=== PATIENT | female | born 1960 | race African-American/Black ===

== ENCOUNTER 2017-05-12 16:24 | Outpatient (CLI) | payer MEDICARE, OTHER ==
--- NOTE | 2017-05-12 22:47 | MRI ---
MRI CERVICAL SPINE WITHOUT CONTRAST 05/12/17 COMPARISON: None. HISTORY: Left sided neck pain and shoulder pain for two months. TECHNIQUE: Multiplanar and multisequence MRI images are obtained of the cervical spine without contrast. FINDINGS: Generalized disc desiccation is seen. The vertebral bodies and intervertebral discs demonstrate norm al height and alignment without fracture or subluxation. The visualized cord demonstrates normal sig nal throughout. The craniocervical junction is unremarkable. The prevertebral and paraspinal soft ti ssues are unremarkable. C2-3: Unremarkable. C3-4: A small disc osteophyte complex is seen. No posterior facet arthrosis. Mild central canal sten osis. Mild bilateral neural foraminal stenosis. C4-5: A small disc osteophyte complex is seen. Mild left posterior facet arthrosis. No right posteri or facet arthrosis. Mild central canal stenosis. Moderate left and mild right neural foraminal steno sis. C5-6: A small disc osteophyte complex is seen. No posterior facet arthrosis. Mild central canal sten osis. Mild bilateral neural foraminal stenosis. C6-7: A small disc osteophyte complex is seen. No posterior facet arthrosis. Mild to moderate centra l canal stenosis. Moderate left and mild right neural foraminal stenosis. C7-T1: Unremarkable. IMPRESSION: Degenerative changes of the cervical spine as above. POS: [facility]
== END 2017-05-12 16:25 | disposition home or self-care (01) ==
LOC: MRI 16:24
PROVIDERS: ATTEND Orthopaedic Surgery
DX: M47.22 Other spondylosis with radiculopathy, cervical region (principal)
CPT/HCPCS: 72141

== ENCOUNTER 2017-06-08 21:29 | Emergency (ER) | payer MEDICARE ==
[2017-06-08] MEDS ORDERED: Lidocaine Viscous Sol 2% 15 ml UD Cup ONE (22:12)
[2017-06-08] MEDS ORDERED: Mag-Al 1200 mg/1200 mg/30 ML UDCUP ONE (22:12)
[2017-06-08 22:17] LABS: #Basophils 0.1 thou/uL (0.0-0.2); #Eosinphils 0.2 thou/uL (0.0-0.7); #Lymphocytes 2.1 thou/uL (1.20-3.40); #Monocytes 0.7 thou/uL (0.11-0.59); #Neutrophils 4.2 thou/uL (1.40-6.50); %Basophils 1.3 % (0.0-1.0); %Eosinophils 2.5 % (0.0-10.0); %Lymphocytes 28.6 % (21.0-51.0); %Monocytes 9.8 % (0.0-10.0); Hematocrit 39.1 % (36.0-47.0); Mean Platelet Volume 6.7 fL (7.4-10.4); Red Blood Cell (RBC) Count 4.23 mill/uL (4.20-5.40); White Blood Cell (WBC) Count 7.3 thou/uL (4.8-10.8)
--- NOTE | 2017-06-08 22:27 | RAD ---
AP VIEW CHEST: 06/08/17 HISTORY: Epigastric pain. AP view chest is obtained. Comparison made to previous exam from 05/03/17. AP view chest demonstrates sternotomy wires seen. The lungs are well aerated. No evidence of active intrathoracic disease seen. No evidence of effusions, pneumonia or pneumothorax seen. Surgical stapl es seen in the left axillary region. IMPRESSION: Unremarkable AP view chest with no evidence of acute intrathoracic abnormality seen. POS: [facility]
[2017-06-08 22:39] LABS: ALT (SGPT) 13 U/L (8-55); AST (SGOT) 16 U/L (5-34); Alkaline Phosphatase 110 U/L (40-150); Anion Gap 16 mmol/L (10-20); BUN (Urea Nitrogen) 18 mg/dL (9.8-20.1); Bilirubin, Total 0.7 mg/dL (0.2-1.2); CK (CPK) 129 U/L (29-168); Calc. Creatinine Clearance 0 mL/min (70-130); Calcium 10.1 mg/dL (7.8-10.44); Carbon Dioxide 21 mmol/L (22-29); Chloride 106 mmol/L (98-107); Estimated GFR-MDRD 64; Globulin 4.1 g/dL (2.4-3.5); Lipase 42 U/L (8-78); Protein, Total 8.5 g/dL (6.0-8.3)
[2017-06-08 22:41] LABS: Troponin I Less than 0.010 ng/mL (< 0.028)
== END 2017-06-08 22:56 | disposition home or self-care (01) ==
LOC: ERS 21:29
DX: R10.13 Epigastric pain (principal); R07.9 Chest pain, unspecified
CPT/HCPCS: 71010; 80053; 82550; 82553; 83690; 84484; 85025; 93005; 94760

== ENCOUNTER 2017-11-08 16:58 | Inpatient (IN) | payer MEDICARE, OTHER ==
[2017-11-08] MEDS ORDERED: Ondansetron HCl/PF 4 MG/2 ML Vial ONE (17:22)
[2017-11-08 17:43] LABS: ALT (SGPT) 8 U/L (8-55); AST (SGOT) 16 U/L (5-34); Albumin 4.3 g/dL (3.5-5.0); Alkaline Phosphatase 93 U/L (40-150); Anion Gap 16 mmol/L (10-20); BUN (Urea Nitrogen) 14 mg/dL (9.8-20.1); Bilirubin, Total 1.3 mg/dL (0.2-1.2); CK (CPK) 77 U/L (29-168); Calc. Creatinine Clearance 0 mL/min (70-130); Calcium 9.4 mg/dL (7.8-10.44); Carbon Dioxide 23 mmol/L (22-29); Chloride 104 mmol/L (98-107); Estimated GFR-MDRD 54; Glucose 104 mg/dL (70-105); Lipase 26 U/L (8-78); Potassium 4.2 mmol/L (3.5-5.1); Protein, Total 7.3 g/dL (6.0-8.3); Sodium 139 mmol/L (136-145)
[2017-11-08 17:46] LABS: CKMB 0.5 ng/mL (0-6.6); Troponin I Less than 0.010 ng/mL (< 0.028)
--- NOTE | 2017-11-08 17:51 | RAD ---
SINGLE VIEW OF THE CHEST: COMPARISON: 06/08/2017 HISTORY: Nausea, vomiting, and fatigue for 2 days. FINDINGS: Single view of the chest shows a normal size cardiomediastinal silhouette. The patient is status pos t sternotomy. There is no evidence of consolidation, mass, or pleural effusion. IMPRESSION: No evidence of acute cardiopulmonary disease. POS: [facility]
[2017-11-08 18:01] LABS: Band 2 % (5-11); Elliptocytes SLIGHT = 2-5 cells (100X) (0-1/hpf); Hemoglobin 8.9 g/dL (12.0-16.0); Hypochromia SLIGHT = 6-15 cells (100X) (0-5/hpf); Lymphocytes 18 % (21-51); MDiff Complete? YES; Mean Corpuscular HGB CONC 34.8 g/dL (32.0-36.0); Mean Corpuscular Hemoglobin 32.6 pg (27.0-31.0); Mean Corpuscular Volume 93.7 fl (81.0-99.0); Metamyelocyte 1 % (0-0); Microcytosis SLIGHT = 6-15 cells (100X) (0-5/hpf); Monocytes 50 % (0-10); Myelocyte 2 % (0-0); Neutrophil 11 % (42-75); Ovalocytes SLIGHT = 2-5 cells (100X) (0-1/hpf); PLT Morphology Comment Appears Decreased; Platelet Count 13 thou/uL (130-400); Polychromasia SLIGHT = 2-3 cells (100X) (0-2/hpf); RBC Distribution Width 15.2 % (11.5-14.5); Red Blood Cell (RBC) Count 2.72 mill/uL (4.20-5.40); Reflex for Review?? YES; White Blood Cell (WBC) Count 11.9 thou/uL (4.8-10.8)
[2017-11-08 18:23] LABS: Bilirubin Negative (Negative); Blood, Urine Moderate (Negative); Glucose, Urine (Dipstick) Negative (Negative); Leukocyte Trace (Negative); Nitrite Negative (Negative); Protein, Urine (Dipstick) Negative (Neg-Trace)
[2017-11-08 18:24] LABS: Clarity Hazy (Clear)
[2017-11-08 18:30] LABS: Bacteria/HPF 1+ HPF (None Seen); WBC/HPF 0-3 HPF (0-3)
[2017-11-08] MEDS ORDERED: Ondansetron HCl/PF 4 MG/2 ML Vial IVP PRN (20:13)
[2017-11-08] MEDS ORDERED: Ondansetron ODT 4 MG TAB SL PRN (20:13)
[2017-11-08] MEDS ORDERED: Sodium Chloride 0.9% 1,000 ML IV SCH ×2 (20:13→22:00)
[2017-11-08 21:53] VITALS: BMI 33.9
[2017-11-08] MEDS ORDERED: Furosemide 80 MG TAB PO PRN (21:54)
[2017-11-08] MEDS ORDERED: Nitroglycerin 0.4 MG TAB (25 Tab Bottle) SL PRN (21:54)
[2017-11-08] MEDS: Morphine 5 MG/ML SYRINGE SLOW IVP PRN (23:17)
[2017-11-08] MEDS: Cyclobenzaprine 10 MG TAB PO PRN (23:17)
--- NOTE | 2017-11-08 23:26 | HP ---
DATE OF ADMISSION: 11/08/2017 CHIEF COMPLAINT: Diarrhea. HISTORY OF PRESENT ILLNESS: This is a 57-year-old -[place] female with a known history of br east cancer on chemotherapy and radiation closely followed by Dr. Snell. The last radiation she w as 1 year ago in 12/2016. Since then she follows up with Dr. Snell every 6 months. The patient w as feeling very weak for the past few days associated severe diarrhea, nausea, and vomiting. She den ied taking any antibiotic. She denied eating any food outside to cause stomach upset. She denied wang ving any fevers, no chills and/or rigors. No frequent urination. No abdominal pain. She complains of chronic back pain and she points toward the spine or thoracic spine. The patient has known history of coronary artery disease with history of CABG done a year ago and she sees Dr. Mitchell. PAST MEDICAL HISTORY: 1. History of coronary artery disease. 2. History of breast cancer. 3. History of hypertension. PAST SURGICAL HISTORY: 1. History of hysterectomy. 2. History of cholecystectomy. 3. History of coronary artery bypass grafting. SOCIAL HISTORY: The patient is a nonsmoker. Quit smoking many years ago. No history of alcohol, no history of illicit drug use. She lives independently. REVIEW OF SYSTEMS: All 12 systems reviewed with the patient thoroughly. The following complete revi ew of systems was negative, unless otherwise mentioned in the HPI or below: Constitutional: Weight loss or gain, sense of well-being, ability to conduct usual activities, exerc ise tolerance. Skin/Breast: Rash, itching, changes in hair growth or loss, nail changes, breast lum ps, tenderness, swelling, nipple discharge. Eyes: Vision, double vision, tearing, blind spots, pain . ENT/Mouth: Headaches (location, time of onset, duration, precipitating factors), vertigo, lighthe adedness, injury. Vision, double vision, tearing, blind spots, pain, nose bleeding, colds, obstructio n, discharge, dental difficulties, gingival bleeding, dentures, neck stiffness, pain, tenderness, mas ses in thyroid or other areas. Cardiovascular: Precordial pain, substernal distress, palpitations, syncope, dyspnea on exertion, orthopnea, nocturnal paroxysmal dyspnea, edema, cyanosis, hypertension, heart murmurs, varicosities, phlebitis, claudication. Respiratory: Pain, shortness of breath, whee zing, stridor, cough, hemoptysis, fever or night sweats. Gastrointestinal: Poor appetite, dysphagia , indigestion, abdominal pain, heartburn, eructation, nausea, vomiting, hematemesis, jaundice, consti pation, or diarrhea, abnormal stools (denny-colored, tarry, bloody, greasy, foul smelling), flatulence , hemorrhoids, recent changes in bowel habits. Genitourinary: Urgency, frequency, dysuria, nocturia , hematuria, polyuria, oliguria, unusual (or change in) color of urine, stones, hesitancy, change in size of stream, dribbling, acute retention or incontinence, libido, potency. Musculoskeletal: Pain, swelling, redness or heat of muscles or joints, limitation, of motion, muscular weakness, atrophy, c ramps. Neurologic/Psychiatric: Convulsions, paralyses, tremor, incoordination, paresthesias, difficulties w ith memory of speech, sensory or motor disturbances, or muscular coordination (ataxia, tremor), emoti onal problems, anxiety, depression, previous psychiatric care, unusual perceptions, hallucinations. Allergy/Immunologic: Skin rash, anemia, bleeding tendency, polydipsia, polyuria, intolerance to heat or cold. ALLERGIES: No known drug allergies. FAMILY HISTORY: No significant family history of coronary artery disease, this has been reviewed tho roughly and not contributing to present complaint. HOME MEDICATIONS: Aspirin 81 mg daily, anastrozole 1 mg p.o. daily, calcium, cyclobenzaprine 5 mg p. o. t.i.d., fluticasone 2 sprays, Lasix 80 mg p.o. b.i.d., hydralazine 10 mg p.o. b.i.d., isosorbide 3 0 mg p.o. daily, magnesium, nebivolol 10 mg p.o. daily, nitroglycerin, potassium, and spironolactone 25 mg p.o. daily. PHYSICAL EXAMINATION: VITAL SIGNS: Blood pressures are 121/75, heart rate is 87, respiration rate is 18, and saturation 91 %. GENERAL: The patient is seen lying in the bed supine, does not appear to be in acute distress at thi s time. She is alert and oriented x3. HEENT: Atraumatic, normocephalic. PERRLA. Extraocular movements were intact. Oral mucosa pink and moist. CARDIOVASCULAR: S1, S2 normal. No murmurs, rubs or gallops. LUNGS: Bilateral air entry was equal. No wheezing, no crackles. ABDOMEN: Soft, nontender, no guarding, no rebound tenderness. Bowel sounds normal. MUSCULOSKELETAL: No calf tenderness. No pedal edema. No joint tenderness, no joint swelling. SKIN: No cyanosis, no erythema, no rash, no pallor. NEUROLOGIC: Cranial examination II-XII intact. No focal deficits were noted. PSYCHIATRIC: No suicidal ideation, no signs of karen. LABORATORY DATA: WBC 11.9, hemoglobin is 8.9, hematocrit is 25.4, platelets are 13. UA showed trace leukocyte esterase positive, but normal wbc's. Sodium 139, potassium 4.2, chloride is 104, BUN 14, and creatinine 1.24. ASSESSMENT: 1. Severe thrombocytopenia. 2. Severe intractable nausea and vomiting. 3. Severe diarrhea. 4. Dehydration. 5. History of breast cancer. 6. History of coronary artery disease with coronary artery bypass graft. 7. History of hypertension. PLAN: 1. Plan is to start the patient on platelet transfusion. We will do 2 units of platelet transfusion , today the platelets are 13. Her usual platelets are more than 200 according to her. We will consu lt Dr. Snell in the morning. 2. The patient has severe dehydration. We will start the patient on IV fluids at 100 mL an hour. W e will give only one bag of fluids and stop and we will restart the patient on Lasix. She is to avoi d any excessive of volume overload. 3. The patient has severe intractable nausea and vomiting. We will do Zofran for nausea. We will c losely monitor. 4. The patient has severe diarrhea. We will do a Clostridium difficile toxin assay and stool cultur es to look for any evidence of infectious diarrhea. 5. History of coronary artery disease. We will hold off the aspirin at this time because of the hig h risk of bleeding with thrombocytopenia. 6. We will continue the patient on the beta blockers and hydralazine for blood pressures. 7. Deep venous thrombosis prophylaxis. Sequential compression devices. I spent 70 minutes with this patient.
[2017-11-09] MEDS: Acetaminophen 325 MG TAB PO PRN ×2 (05:27→14:32)
[2017-11-09] MEDS: Famotidine/PF 20 mg/2ml Vial SLOW IVP SCH ×2 (08:58→19:50)
[2017-11-09] MEDS: Calcium Carbonate + Vit D 1 TAB PO SCH (08:59)
[2017-11-09] MEDS: Magnesium Oxide 250 MG TAB PO SCH ×2 (09:00→19:51)
[2017-11-09] MEDS: Potassium Chloride 10 MEQ TAB PO SCH (09:00)
[2017-11-09] MEDS: Nebivolol HCl 5 MG TAB PO SCH (09:00)
[2017-11-09] MEDS ORDERED: Spironolactone 25 MG TAB PO SCH (09:00)
[2017-11-09] MEDS: Docusate 100 MG CAP PO SCH ×2 (09:00→19:51)
[2017-11-09 09:28] LABS: ALT (SGPT) 10 U/L (8-55); AST (SGOT) 17 U/L (5-34); Albumin 3.9 g/dL (3.5-5.0); Alkaline Phosphatase 83 U/L (40-150); Anion Gap 13 mmol/L (10-20); BUN (Urea Nitrogen) 12 mg/dL (9.8-20.1); Bilirubin, Total 2.6 mg/dL (0.2-1.2); Calc. Creatinine Clearance 76 mL/min (70-130); Calcium 8.9 mg/dL (7.8-10.44); Carbon Dioxide 23 mmol/L (22-29); Chloride 105 mmol/L (98-107); Estimated GFR-MDRD 57; Globulin 2.7 g/dL (2.4-3.5); Glucose 119 mg/dL (70-105); LDH 561 U/L (125-220); Potassium 3.9 mmol/L (3.5-5.1); Protein, Total 6.6 g/dL (6.0-8.3); Sodium 137 mmol/L (136-145); Uric Acid 8.3 mg/dL (2.6-6.0)
[2017-11-09] MEDS: Morphine 5 MG/ML SYRINGE SLOW IVP PRN ×2 (09:29→14:32)
[2017-11-09] MEDS: hydrALAZINE 10 MG TAB PO SCH ×2 (09:35→19:51)
[2017-11-09] MEDS: Anastrozole 1 MG TAB PO SCH (09:35)
[2017-11-09] MEDS: Fluticasone Propionate Nasal Spray 16 gm Bottle NASAL SCH (09:36)
[2017-11-09 09:38] LABS: Anisocytosis SLIGHT = 6-15 cells (100X) (0-5/hpf); Band 1 % (5-11); Hemoglobin 7.4 g/dL (12.0-16.0); Hypochromia SLIGHT = 6-15 cells (100X) (0-5/hpf); Lymphocytes 53 % (21-51); MDiff Complete? YES; Mean Corpuscular HGB CONC 35.2 g/dL (32.0-36.0); Mean Corpuscular Hemoglobin 34.2 pg (27.0-31.0); Mean Corpuscular Volume 97.1 fl (81.0-99.0); Mean Platelet Volume 6.5 fL (7.4-10.4); Metamyelocyte 7 % (0-0); Myelocyte 1 % (0-0); Neutrophil 3 % (42-75); Platelet Count 123 thou/uL (130-400); RBC Distribution Width 15.4 % (11.5-14.5); Reactive Lymphocytes 10 % (0-10); Red Blood Cell (RBC) Count 2.15 mill/uL (4.20-5.40)
--- NOTE | 2017-11-09 10:31 | OP-2 ---
DATE OF PROCEDURE: 11/09/2017 INDICATION: Unable to obtain peripheral access and need for a platelet transfusion and recurrent blo od draws. PROCEDURE GLASS FRAME FITTER: Dr. Ivelisse Read ATTENDING PHYSICIAN: Dr. Dominik Burciaga was in attendance throughout the entire procedure. ULTRASOUND USED: Yes. CONSENT: Consent was obtained from the patient prior to procedure. Indications, risks and benefits were explained at length. PROCEDURE SUMMARY: A timeout was performed. My hands were washed immediately prior to the procedure . I wore a surgical cap, mask with protective eyewear, sterile gown and sterile gloves throughout th e procedure. The left inguinal region was prepped using chlorhexidine scrub and draped in sterile fa shion using a 3/4 sheet drape and sterile towels. The femoral pulse was identified. Anesthesia was achieved using 1% lidocaine. Using ultrasound guidance, the introducer needle was inserted medial to the femoral artery and inferior to the inguinal crease into the femoral vein. Venous blood was with drawn. The syringe was removed and guidewire was advanced into the introducer needle. A small incis ion was made at the skin surface with a scalpel and the introducer needle was exchanged for a dilator over the guidewire. After appropriate dilation was obtained, the dilator was exchanged over the wir e for a 7 Urdu central venous catheter. The wire was removed and the catheter was sutured in place . A sterile Tegaderm patch was placed over the catheter at the insertion site. The patient tolerate d the procedure without any hemodynamic compromise. At time of procedure completion, all ports aspir ated and flushed properly. ESTIMATED BLOOD LOSS: Less than 10 mL.
--- NOTE | 2017-11-09 11:26 | PDOC.PN ---
- Subjective Encounter Start Date: 11/09/17 Encounter Start Time: 10:45 Subjective: c/o pain all over, no sob -: no abd pain or bleeding anywhere - Objective Resuscitation Status: Resuscitation Status FULL:Full Resuscitation MAR Reviewed: Yes Vital Signs & Weight: Vital Signs (12 hours) Temp Pulse Pulse Resp BP BP Pulse Ox 11/09/17 09:35 106 H 11/09/17 08:00 99.8 F H 106 H 16 101/65 92 L 11/09/17 07:00 99.8 F H 106 H 16 101/65 11/09/17 05:28 100.2 F H 100 18 106/65 93 L 11/09/17 04:45 99.6 F 100 18 113/68 91 L 11/09/17 03:23 100.3 F H 95 18 115/73 98 11/09/17 02:41 101.0 F H 96 18 125/73 91 L 11/09/17 00:00 99.8 F H 88 18 127/72 91 L Weight Weight 204 lb I&O: 11/08/17 11/09/17 11/10/17 06:59 06:59 06:59 Intake Total 250 250 Balance 250 250 Result Diagrams: 11/09/17 08:57 11/09/17 08:57 Phys Exam - Physical Examination HEENT: PERRLA, moist MMs Neck: no JVD, supple Respiratory: no wheezing, no rales Cardiovascular: RRR, no significant murmur Gastrointestinal: soft, non-tender, no distention, positive bowel sounds Musculoskeletal: no edema, pulses present Neurological: non-focal, moves all 4 limbs Psychiatric: normal affect, A&O x 3 Dx/Plan (1) Gastroenteritis Code(s): K52.9 - NONINFECTIVE GASTROENTERITIS AND COLITIS, UNSPECIFIED Status : Acute (2) Myeloproliferative disorder Code(s): D47.1 - CHRONIC MYELOPROLIFERATIVE DISEASE Status: Suspected (3) CAD (coronary artery disease) Code(s): I25.10 - ATHSCL HEART DISEASE OF [place] CORONARY ARTERY W/O ANG PCTRS Status: Chronic Qualifiers: Coronary Disease-Associated Artery/Lesion type: bypass graft [place] vs. transplanted heart: [place] heart Associated angina: without angina Qualified Code(s): I25.810 - Atherosclerosis of coronary artery bypass graft(s) without angina pectoris (4) Breast cancer Status: Chronic Qualifiers: Breast location: unspecified site of breast (5) COPD (chronic obstructive pulmonary disease) Status: Chronic Qualifiers: COPD type: chronic bronchitis Chronic bronchitis type: unspecified Qualified Code(s): J42 - Unspecified chronic bronchitis (6) Hypertension Code(s): I10 - ESSENTIAL (PRIMARY) HYPERTENSION Status: Chronic Qualifiers: Hypertension type: essential hypertension Qualified Code(s): I10 - Essential (primary) hypertension - Plan LDH high, direct sean is +ve -: peripheral smear is suspicious for MDS -: platelet count has come up to 124 this am, received 2 packs platelet transf -: await onc opinion -: stool studies are pending, jose cultures * . Review of Systems - Medications/Allergies Allergies/Adverse Reactions: Allergies Allergy/AdvReac Type Severity Reaction Status Date / Time No Known Allergies Allergy Verified 05/03/17 21:41 Medications: Current Medications Acetaminophen (Tylenol) 650 mg PO Q4H PRN PRN Reason: Headache/Fever or Pain Last Admin: 11/09/17 05:27 Dose: 650 mg Hydrocodone Bitart/Acetaminophen ([place] 7.5/325) 1 tab PO Q4H PRN PRN Reason: Moderate Pain (4-6) Anastrozole (Arimidex) 1 mg PO DAILY [facility] Last Admin: 11/09/17 09:35 Dose: Not Given Calcium/Vitamin D (Caltrate 600 + Vit D) 1 tab PO DAILY [facility] Last Admin: 11/09/17 08:59 Dose: Not Given Cyclobenzaprine HCl (Flexeril) 5 mg PO TID PRN PRN Reason: Muscle Spasm Last Admin: 11/08/17 23:17 Dose: 5 mg Docusate Sodium (Colace) 100 mg PO BID [facility] Last Admin: 11/09/17 09:00 Dose: Not Given Famotidine (Pepcid) 20 mg SLOW IVP Q12HR [facility] Last Admin: 11/09/17 08:58 Dose: 20 mg Fluticasone Propionate (Flonase Nasal [place]) 0 gm NASAL DAILY [facility] Last Admin: 11/09/17 09:36 Dose: Not Given Hydralazine HCl (Apresoline) 10 mg PO BID [facility] Last Admin: 11/09/17 09:35 Dose: Not Given Isosorbide Mononitrate (Imdur Er) 30 mg PO DAILY [facility] Last Admin: 11/09/17 09:00 Dose: Not Given Magnesium Oxide (Magnesium Oxide) 500 mg PO BID [facility] Last Admin: 11/09/17 09:00 Dose: Not Given Morphine Sulfate (Morphine) 2 mg SLOW IVP Q4H PRN PRN Reason: Breakthrough Pain Last Admin: 11/09/17 09:29 Dose: 2 mg Nebivolol (Bystolic) 10 mg PO DAILY [facility] Last Admin: 11/09/17 09:00 Dose: Not Given Nitroglycerin (Nitrostat) 0.4 mg SL Q5MIN PRN PRN Reason: Chest Pain Ondansetron HCl (Zofran) 4 mg IVP Q6H PRN PRN Reason: Nausea/Vomiting Potassium Chloride (Klor-Con 10) 10 meq PO DAILY [facility] Last Admin: 11/09/17 09:00 Dose: Not Given Sodium Chloride (Flush - Normal Saline) 10 ml IVF Q12HR [facility] Last Admin: 11/09/17 09:31 Dose: 10 ml Sodium Chloride (Flush - Normal Saline) 10 ml IVF PRN PRN PRN Reason: Saline Flush
[2017-11-09] MEDS: Ondansetron HCl/PF 4 MG/2 ML Vial IVP PRN (14:32)
[2017-11-09] MEDS ORDERED: VANCOMYCIN IVPB PRN (16:38)
[2017-11-09 16:46] LABS: Reticulocyte Count 2.4 % (0.5-1.5)
[2017-11-09] MEDS: Vancomycin HCl 1.5 GM in Sodium Chloride 0.9% 250 ML 300 ML IVPB SCH (18:11)
[2017-11-09] MEDS: Cefepime 1 GM, Admixture Fee 1 EACH in Sodium Chloride 0.9% 10 ML SLOW IVP SCH (19:51)
[2017-11-09] MEDS: HYDROcodone/Acetaminophen 7.5/325 mg Tablet PO PRN (19:57)
[2017-11-09] MEDS: Cyclobenzaprine 10 MG TAB PO PRN (19:57)
[2017-11-09] MEDS ORDERED: Cefepime 1 GM in Sodium Chloride 0.9% 100 ML IVPB SCH (21:00)
[2017-11-09] MEDS ORDERED: Vancomycin HCl 1 GM in Premix Bag 1 BAG IVPB SCH (21:00)
[2017-11-10 05:46] LABS: Anisocytosis SLIGHT = 6-15 cells (100X) (0-5/hpf); Blast 4 % (0-0); Hemoglobin 8.5 g/dL (12.0-16.0); Lymphocytes 41 % (21-51); MDiff Complete? YES; Mean Corpuscular HGB CONC 34.6 g/dL (32.0-36.0); Mean Corpuscular Hemoglobin 32.5 pg (27.0-31.0); Mean Platelet Volume 6.6 fL (7.4-10.4); Metamyelocyte 1 % (0-0); Monocytes 6 % (0-10); Myelocyte 1 % (0-0); Neutrophil 6 % (42-75); Nucleated RBC 3 % (0); PLT Morphology Comment Appears Decreased; Platelet Count 62 thou/uL (130-400); Polychromasia SLIGHT = 2-3 cells (100X) (0-2/hpf); RBC Distribution Width 15.7 % (11.5-14.5); Reactive Lymphocytes 12 % (0-10); Red Blood Cell (RBC) Count 2.62 mill/uL (4.20-5.40); White Blood Cell (WBC) Count 19.8 thou/uL (4.8-10.8)
[2017-11-10] MEDS: Cefepime 1 GM, Admixture Fee 1 EACH in Sodium Chloride 0.9% 10 ML SLOW IVP SCH ×2 (09:10→20:52)
[2017-11-10] MEDS: Magnesium Oxide 250 MG TAB PO SCH ×2 (09:11→20:53)
[2017-11-10] MEDS: Nebivolol HCl 5 MG TAB PO SCH (09:11)
[2017-11-10] MEDS: Calcium Carbonate + Vit D 1 TAB PO SCH (09:15)
[2017-11-10] MEDS: Docusate 100 MG CAP PO SCH ×2 (09:15→20:53)
[2017-11-10] MEDS: Potassium Chloride 10 MEQ TAB PO SCH (09:16)
[2017-11-10] MEDS: Anastrozole 1 MG TAB PO SCH (09:19)
[2017-11-10] MEDS: hydrALAZINE 10 MG TAB PO SCH ×2 (09:20→20:54)
[2017-11-10] MEDS: Famotidine/PF 20 mg/2ml Vial SLOW IVP SCH ×2 (09:21→20:53)
[2017-11-10] MEDS: Fluticasone Propionate Nasal Spray 16 gm Bottle NASAL SCH (09:21)
[2017-11-10] MEDS: Acetaminophen 325 MG TAB PO PRN (09:36)
--- NOTE | 2017-11-10 12:12 | CON ---
DATE OF CONSULTATION: 11/09/2017 REASON FOR CONSULTATION: Thrombocytopenia. HISTORY OF PRESENT ILLNESS: Ms. Guajardo is a pleasant 57-year-old -[place] female who complete d treatment for ER positive, DE negative, HER-2 positive stage IIIA lobular carcinoma of the left dari ast. She is currently on Arimidex. She presented to the emergency room with a 3-day complaint of we akness, abdominal pain, and diarrhea. She states her fatigue actually started several weeks prior to this visit. She had mildly elevated creatinine in the emergency room and was admitted for dehydrati on and intractable nausea. She just had a CBC drawn, which showed a white count of 11.9, hemoglobin of 8.9, hematocrit 25.4, and a platelet count of 13,000. She had 11% neutrophils, 2% bands, 80% lymp hocytes, and 50% monocytes. She was transfused 2 units of platelets. We were asked to see the patie nt regarding her abnormal CBC. The patient denies any chest pain or shortness of breath. No blood i n her urine or stool. No epistaxis or hemoptysis. She does complain of fatigue, muscle cramps and p oor appetite, although she denies any weight loss. PAST MEDICAL HISTORY: 1. Stage IIIA breast cancer. 2. Coronary artery disease. 3. COPD. 4. Hypertension. 5. CVA. PAST SURGICAL HISTORY: 1. Coronary artery bypass graft. 2. Cholecystectomy. 3. Umbilical hernia repair. ALLERGIES: No known drug allergies. HOME MEDICATIONS: 1. Anastrozole 20 mg daily. 2. Ecotrin 81 mg daily. 3. Furosemide 80 mg b.i.d. 4. Hydralazine 10 mg b.i.d. 5. Imdur ER 30 mg daily. 6. Bystolic 10 mg daily. 7. Potassium chloride 20 mEq daily. 8. Aldactone 25 mg daily. FAMILY HISTORY: Her mother and sister had breast cancer. SOCIAL HISTORY: . Has 4 children. No alcohol, tobacco or illicit drug use. REVIEW OF SYSTEMS: Twelve point review of systems is negative except for noted in HPI. PHYSICAL EXAMINATION: VITAL SIGNS: Temperature is 103, heart rate is 106, respiratory rate is 18, BP is 107/71. She is 93 % on room air. GENERAL: Well-developed, well-nourished female, appears ill. HEENT: Normocephalic, atraumatic. Pupils are equal and reactive to light. Sclerae are nonicteric. CARDIOVASCULAR: Tachycardic. LUNGS: Clear. ABDOMEN: Soft, nontender, bowel sounds are positive. EXTREMITIES: There is no clubbing, cyanosis or edema. SKIN: No rash. HEMATOLOGIC: There is no petechia or purpura. NEUROLOGIC: Nonfocal. PSYCHIATRIC: The patient is alert and oriented and appropriate. PERTINENT LABORATORY AND X-RAYS: Current WBCs are 16, hemoglobin 7.4, hematocrit 20.9, platelet coun t is 123,000. She got 3% neutrophils, 1% bands, 53% lymphocytes, 10% reactive lymphocytes, and she g ot 7% metamyelocytes and 1% myelocytes, 25% abnormal cells. Sodium is 137, potassium 3.9, chloride i s 105, CO2 is 23, BUN is 12, creatinine 1.17, lactic acid is 1.4, uric acid is 8.3, calcium is 8.9, t otal bilirubin is 2.6, AST 17, ALT is 10, alkaline phosphatase is 83. LDH is 561, CK-MB is 0.5, trop onin is less than 0.010. Serum total protein 6.6, albumin 3.9, globulin 2.7, lipase is 26. Urine sh owed 1+ bacteria. Chest x-ray showed no acute process. IMPRESSION: 1. Anemia and thrombocytopenia with an abnormal peripheral smear. 2. Fever. 3. History of stage IIIA breast cancer, on Arimidex. DISCUSSION: The case was discussed with Dr. Snell. Flow cytometry has been sent on peripheral bl ood. Hopefully, that will return in the next 24 hours have been normal. She may need a bone marrow or potential transfer to a higher level of care. Differential diagnosis includes of course leukemia or lymphoma or myelodysplastic syndrome. Patient has a fever of 103. It may be due to leukemia. Ho wever, she has been pancultured and should be started on empiric antibiotics, Tylenol has been given for fever. She has been on IV fluids. We will continue supportive care. We wait for the flow cytom etry. Thank you for the consult.
[2017-11-10] MEDS: Ondansetron HCl/PF 4 MG/2 ML Vial IVP PRN (14:55)
[2017-11-10] MEDS ORDERED: Docusate Sodium 100 MG/10 ML UDCUP PO PRN (15:12)
--- NOTE | 2017-11-10 15:12 | PDOC.PN ---
- Subjective Encounter Start Date: 11/10/17 Encounter Start Time: 15:11 Subjective: nsg notes rev, yaw ovn, pt c/o nausea and generalized weakness - Objective Resuscitation Status: Resuscitation Status FULL:Full Resuscitation Vital Signs & Weight: Vital Signs (12 hours) Temp Pulse Resp BP BP Pulse Ox 11/10/17 12:07 99.1 F 97 20 97/64 94 L 11/10/17 09:20 97 102/66 11/10/17 08:00 100.1 F H 97 20 102/66 94 L 11/10/17 04:00 100.6 F H 104 H 20 124/74 96 Weight Admit Weight 204 lb Weight 204 lb I&O: 11/09/17 11/10/17 11/11/17 06:59 06:59 06:59 Intake Total 250 1870 240 Balance 250 1870 240 Result Diagrams: 11/10/17 04:50 11/09/17 08:57 Dx/Plan - Plan * . Review of Systems - Medications/Allergies Allergies/Adverse Reactions: Allergies Allergy/AdvReac Type Severity Reaction Status Date / Time No Known Allergies Allergy Verified 05/03/17 21:41 Medications: Current Medications Acetaminophen (Tylenol) 650 mg PO Q4H PRN PRN Reason: Headache/Fever or Pain Last Admin: 11/10/17 09:36 Dose: 650 mg Hydrocodone Bitart/Acetaminophen ([place] 7.5/325) 1 tab PO Q4H PRN PRN Reason: Moderate Pain (4-6) Last Admin: 11/09/17 19:57 Dose: 1 tab Anastrozole (Arimidex) 1 mg PO DAILY [facility] Last Admin: 11/10/17 09:19 Dose: 1 mg Calcium/Vitamin D (Caltrate 600 + Vit D) 1 tab PO DAILY [facility] Last Admin: 11/10/17 09:15 Dose: 1 tab Cyclobenzaprine HCl (Flexeril) 5 mg PO TID PRN PRN Reason: Muscle Spasm Last Admin: 11/09/17 19:57 Dose: 5 mg Docusate Sodium (Colace) 100 mg PO BID [facility] Last Admin: 11/10/17 09:15 Dose: Not Given Famotidine (Pepcid) 20 mg SLOW IVP Q12HR [facility] Last Admin: 11/10/17 09:21 Dose: 20 mg Fluticasone Propionate (Flonase Nasal [place]) 0 gm NASAL DAILY [facility] Last Admin: 11/10/17 09:21 Dose: Not Given Hydralazine HCl (Apresoline) 10 mg PO BID [facility] Last Admin: 11/10/17 09:20 Dose: Not Given Levofloxacin 500 mg/ Device 100 mls @ 100 mls/hr IVPB 1800 [facility] Last Admin: 11/09/17 19:50 Dose: 100 mls Vancomycin HCl 1.5 gm/ Sodium (Chloride) 300 mls @ 200 mls/hr IVPB 1700 [facility] Last Admin: 11/09/17 18:11 Dose: 300 mls Cefepime HCl 1 gm/Miscellaneous Medication 1 each/ Sodium Chloride 10 mls @ 120 mls/hr SLOW IVP 0800,2000 [facility] Last Admin: 11/10/17 09:10 Dose: 10 mls Isosorbide Mononitrate (Imdur Er) 30 mg PO DAILY [facility] Last Admin: 11/10/17 09:15 Dose: 30 mg Magnesium Oxide (Magnesium Oxide) 500 mg PO BID [facility] Last Admin: 11/10/17 09:11 Dose: 500 mg Miscellaneous Medication (Pharmacy To Dose) 1 each IVPB PRN PRN PRN Reason: Pharmacy to dose Morphine Sulfate (Morphine) 2 mg SLOW IVP Q4H PRN PRN Reason: Breakthrough Pain Last Admin: 11/09/17 14:32 Dose: 2 mg Nebivolol (Bystolic) 10 mg PO DAILY [facility] Last Admin: 11/10/17 09:11 Dose: 10 mg Nitroglycerin (Nitrostat) 0.4 mg SL Q5MIN PRN PRN Reason: Chest Pain Ondansetron HCl (Zofran) 4 mg IVP Q6H PRN PRN Reason: Nausea/Vomiting Last Admin: 11/10/17 14:55 Dose: 4 mg Potassium Chloride (Klor-Con 10) 10 meq PO DAILY [facility] Last Admin: 11/10/17 09:16 Dose: 10 meq Sodium Chloride (Flush - Normal Saline) 10 ml IVF Q12HR [facility] Last Admin: 11/10/17 09:22 Dose: 10 ml Sodium Chloride (Flush - Normal Saline) 10 ml IVF PRN PRN PRN Reason: Saline Flush Last Admin: 11/10/17 15:03 Dose: 10 ml
[2017-11-10] MEDS ORDERED: Sodium Chloride 0.9% 1,000 ML IV SCH (15:15)
[2017-11-10] MEDS: Vancomycin HCl 1.5 GM in Sodium Chloride 0.9% 250 ML 300 ML IVPB SCH (16:08)
[2017-11-10] MEDS: HYDROcodone/Acetaminophen 7.5/325 mg Tablet PO PRN (16:47)
[2017-11-10] MEDS: Morphine 5 MG/ML SYRINGE SLOW IVP PRN ×2 (17:48→21:35)
[2017-11-10 20:57] VITALS: BP 116/73
[2017-11-10 21:17] VITALS: TEMP 98.9
== END 2017-11-10 23:07 | disposition short-term general hospital (02) | DRG 836 ==
LOC: SCSER 16:58 → T4-A 19:34
PROVIDERS: ADMIT Family Medicine; ATTEND Family Medicine
PROC: 30233R1 Transfusion of Nonautologous Platelets into Peripheral Vein, Percutaneous Approach (ICD-10-PCS; principal; 2017-11-09)
PROC: 30233N1 Transfusion of Nonautologous Red Blood Cells into Peripheral Vein, Percutaneous Approach (ICD-10-PCS; 2017-11-09)
PROC: 06HY33Z Insertion of Infusion Device into Lower Vein, Percutaneous Approach (ICD-10-PCS; 2017-11-09)
DX: C92.00 Acute myeloblastic leukemia, not having achieved remission (principal); D69.6 Thrombocytopenia, unspecified; C50.912 Malignant neoplasm of unspecified site of left female breast; E86.0 Dehydration; I25.10 Atherosclerotic heart disease of native coronary artery without angina pectoris; I10 Essential (primary) hypertension; Z95.1 Presence of aortocoronary bypass graft; Z92.21 Personal history of antineoplastic chemotherapy; Z92.3 Personal history of irradiation; Z87.891 Personal history of nicotine dependence; Z79.82 Long term (current) use of aspirin; J44.9 Chronic obstructive pulmonary disease, unspecified; Z86.73 Personal history of transient ischemic attack (TIA), and cerebral infarction without residual deficits; K52.9 Noninfective gastroenteritis and colitis, unspecified; Z17.0 Estrogen receptor positive status [ER+]; Z90.13 Acquired absence of bilateral breasts and nipples
CPT/HCPCS: 36415; 36430; 71045; 80053; 81003; 81015; 82274; 82550; 82553; 83605; 83615; 83690; 84484; 84550; 85007; 85025; 85027; 85046; 85060; 86850; 86880; 86900; 86901; 87040; 87086; 88184; 93005; 96361; 96374; J2270; A4216; G8978-GP-CM; G8979-GP-CJ; J0692; J1956; J2405; J3370; J7050; P9016; P9035; S0028

== ENCOUNTER 2017-12-14 06:38 | Emergency (ER) | payer MEDICARE, OTHER | END 2017-12-14 08:20 | disposition home or self-care (01) | LOC: SCSER 06:38 | DX: T82.9XXA Unspecified complication of cardiac and vascular prosthetic device, implant and graft, initial encounter (principal); I10 Essential (primary) hypertension; C50.919 Malignant neoplasm of unspecified site of unspecified female breast | CPT/HCPCS: 93005 ==

== ENCOUNTER 2018-04-13 08:18 | Observation (INO) | payer MEDICARE, OTHER ==
[2018-04-13] MEDS ORDERED: Nitroglycerin 0.4 MG TAB (25 Tab Bottle) ONE (09:10)
[2018-04-13 09:12] LABS: #Basophils 0.1 thou/uL (0.0-0.2); #Eosinphils 0.1 thou/uL (0.0-0.7); #Monocytes 0.8 thou/uL (0.11-0.59); #Neutrophils 3.7 thou/uL (1.40-6.50); %Basophils 1.1 % (0.0-1.0); %Eosinophils 1.4 % (0.0-10.0); %Lymphocytes 17.8 % (21.0-51.0); %Monocytes 13.8 % (0.0-10.0); %Neutrophils 65.9 % (42.0-75.0); Hemoglobin 11.5 g/dL (12.0-16.0); Mean Corpuscular HGB CONC 35.5 g/dL (32.0-36.0); Mean Corpuscular Hemoglobin 34.5 pg (27.0-31.0); Mean Corpuscular Volume 97.1 fL (78.0-98.0); Platelet Count 185 thou/uL (130-400); RBC Distribution Width 13.6 % (11.5-14.5); Red Blood Cell (RBC) Count 3.34 mill/uL (4.20-5.40); White Blood Cell (WBC) Count 5.6 thou/uL (4.8-10.8)
[2018-04-13 09:25] LABS: ALT (SGPT) 8 U/L (8-55); AST (SGOT) 15 U/L (5-34); Albumin 3.8 g/dL (3.5-5.0); Alkaline Phosphatase 143 U/L (40-150); Anion Gap 13 mmol/L (10-20); BUN (Urea Nitrogen) 10 mg/dL (9.8-20.1); Bilirubin, Total 0.5 mg/dL (0.2-1.2); Calc. Creatinine Clearance 0 mL/min (70-130); Calcium 9.5 mg/dL (7.8-10.44); Carbon Dioxide 24 mmol/L (22-29); Chloride 106 mmol/L (98-107); Estimated GFR-MDRD 76; Globulin 3.1 g/dL (2.4-3.5); Glucose 107 mg/dL (70-105); Protein, Total 6.9 g/dL (6.0-8.3); Sodium 139 mmol/L (136-145)
--- NOTE | 2018-04-13 09:25 | RAD ---
PORTABLE CHEST ONE VIEW: Date: 04-13-18 Time: 8:17 a.m. History: Chest pain. FINDINGS: Comparison made with exam of 10-11-17. There are changes of median sternotomy. The heart size is enlarged. The lungs are well expanded witho ut focal areas of consolidation, pneumothoraces, mil[place] pulmonary edema or pleural effusions. There is a right upper extremity PICC line with tip in the projection of the SVC. Surgical clips in the left axilla. IMPRESSION: No acute process. POS: [facility] [place]
[2018-04-13 09:30] LABS: CKMB 0.5 ng/mL (0-6.6); Troponin I Less than 0.010 ng/mL (< 0.028)
[2018-04-13 14:52] VITALS: BMI 31.9
--- NOTE | 2018-04-13 15:31 | CON ---
DATE OF CONSULTATION: 04/13/2018 CARDIOLOGY CONSULTATION REASON FOR CONSULTATION: Chest pain. PRIMARY HUMAN SERVICES WORKER: Macarena Mitchell M.D. HISTORY OF PRESENT ILLNESS: Mrs. Temple is a very pleasant 58-year-old -[place] female who comes to the hospital for chest pain. She has had episodes of just pinches on her left chest, lasted about a second time to happen at random times, mostly at rest. She has noted that they are happenin g more often lately, so she decided to come in for evaluation. So far, her troponins are completely negative. She continues to have episodes of chest pain, however. 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 She is telling me that at one point they told that her cancer was very aggressive and i t caused her to have a bleed into the brain and she was told that she could not take any aspirin anym ore. This morning they tried to give an aspirin and she refused it and then she explained that this was the reason. PAST MEDICAL HISTORY: 1. APL as above. 2. History of breast cancer in remission. 3. Coronary artery disease, status post MCCRACKEN to the LAD back in 2016. 4. Hypertension. PAST SURGICAL HISTORY: 1. Hysterectomy. 2. Cholecystectomy. 3. Coronary artery bypass grafting x1 with MCCRACKEN to the LAD. 4. Hernia repair and bilateral mastectomies. SOCIAL HISTORY: Quit smoking many years ago. No alcohol or drug use. FAMILY HISTORY: Early coronary artery disease and breast cancer in the past. REVIEW OF SYSTEMS: A 12-point review of systems was done and it is all negative unless stated in the history of present illness. OUTPATIENT MEDICATIONS: Include 1. Valacyclovir. 2. Pantoprazole. 3. Sublingual nitro. 4. Nifedipine. 5. Metoprolol 25 mg b.i.d. 6. Vimpat 100 mg b.i.d. 7. Anastrozole. 8. Furosemide 80 mg b.i.d. 9. Magnesium 500 mg b.i.d. 10. Potassium chloride 10 mEq a day. 11. Tretinoin. ALLERGIES: No known drug allergies. PHYSICAL EXAMINATION: VITAL SIGNS: Temperature 97.9, pulse 89, respiration rate 17, satting 96% on room air, blood pressur e 120/62. GENERAL: Awake, alert, oriented x3, in no distress. HEENT: Normocephalic, atraumatic. NECK: Supple, no JVD. LUNGS: Clear to auscultation. CARDIOVASCULAR: S1, S2, no S3, S4, no murmurs. ABDOMEN: Soft, positive bowel sounds. EXTREMITIES: Trace edema. SKIN: Warm and dry. LABORATORY DATA: Laboratory work was reviewed. Hematology; CBC with a white count of 5.6, hemoglobi n 11.5. Her baseline hemoglobin is actually around that number even lower before, hematocrit 32, queta telet count of 185, her baseline in the past has been much lower. Chemistry; CMP is unremarkable exc ept for glucose of 107. Troponin, the first one is undetectable with normal CK-MB. Albumin of 3.8. IMAGING DATA: Chest x-ray is unremarkable. No acute cardiopulmonary issues. Evidence of previous b ypass. Most recent echocardiogram was done in April of last year, her EF was 50%-55% with mild left atri al dilatation and moderate to severe MR and mild to moderate TR. ASSESSMENT AND PLAN: 1. Chest pain: Atypical in nature. At this time, given her history of possible brain bleed, it wou ld be prohibitive to put her on any antiplatelet therapy or anticoagulation. She has negative tropon ins and her chest pain is atypical. I would not do any further risk stratification and to get more i nformation from [facility] to see if she in fact had a brain bleed and what the extent of this is. We will get an echo to make sure that her LV function remains normal, if this is the case, I would tr eat her medically. I would up titrate some of her medications once blood pressure will tolerate. 2. Otherwise, continue other medications for now. Thank you for allowing me to participate in the care of your patient. Dr. Mitchell, her primary cardiolo gist will follow up in the morning.
[2018-04-13] MEDS ORDERED: Calcium Carbonate 500 MG ChewTAB PO PRN (17:20)
[2018-04-13] MEDS ORDERED: Senokot 8.6 MG TAB PO PRN (17:20)
[2018-04-13] MEDS ORDERED: Ondansetron ODT 4 MG TAB PO PRN (17:20)
[2018-04-13] MEDS ORDERED: Nitroglycerin 0.4 MG TAB (25 Tab Bottle) PO PRN (17:20)
[2018-04-13] MEDS ORDERED: Ondansetron HCl/PF 4 MG/2 ML Vial IVP PRN (17:20)
[2018-04-13] MEDS ORDERED: Acetaminophen 325 MG TAB PO PRN (17:20)
[2018-04-13] MEDS ORDERED: Labetalol HCl 100 MG/20 ML VIAL SLOW IVP PRN (17:23)
--- NOTE | 2018-04-13 17:31 | HP ---
PRIMARY CARE PHYSICIAN: Dr. Mc. PRIMARY ONCOLOGIST: [facility]. REASON FOR COMPLAINT: Chest discomfort. HISTORY OF PRESENT ILLNESS: The patient is a 58-year-old female with coronary artery disease, status post CABG, hypertension, and leukemia, currently on chemotherapy who presented to the emergency room with chest discomfort. Over the last few days, patient has intermittent chest discomfort, which is short lasting. This morn ing, the pain got worse for which she presented to the emergency room. She also had intermittent pal pitations. No syncope, nausea, vomiting, diaphoresis or radiation reported. No aggravating or relie ving factor. She denies recent immobilization, travel, leg swelling, orthopnea or shortness of breat h. PAST MEDICAL HISTORY: 1. Coronary artery disease, status post coronary artery bypass grafting. 2. Chronic obstructive pulmonary disease. 3. Breast cancer status post bilateral mastectomy. 4. Hypertension. 5. Chronic anemia. 6. History of cerebrovascular accident. PAST SURGICAL HISTORY: 1. Hysterectomy. 2. Cholecystectomy. 3. CABG. 4. Hernia repair. 5. Bilateral mastectomy. 6. Cardiac catheterization. ALLERGIES: No known drug allergies. HOME MEDICATIONS: Daughter to bring the accurate list of medications. She is unable to remember all of her medications. SOCIAL HISTORY: No smoking, alcohol or drug use. She is a former smoker. She makes her own decisio n with the help of her family. FAMILY HISTORY: Positive for breast cancer. REVIEW OF SYSTEMS: The following complete review of systems was negative, unless otherwise mentioned in the HPI or below: Constitutional: Weight loss or gain, ability to conduct usual activities. Skin: Rash, itching. Eyes: Double vision, pain. ENT/Mouth: Nose bleeding, neck stiffness, pain, tenderness. Cardiovascular: Palpitations, dyspnea on exertion, orthopnea. Respiratory: Shortness of breath, wheezing, cough, hemoptysis, fever or night sweats. Gastrointestinal: Poor appetite, abdominal pain, heartburn, nausea, vomiting, constipation, or diarr hea. Genitourinary: Urgency, frequency, dysuria, nocturia. Musculoskeletal: Pain, swelling. Neurologic/Psychiatric: Anxiety, depression. Allergy/Immunologic: Skin rash, bleeding tendency. PHYSICAL EXAMINATION: VITAL SIGNS: In the emergency room showed temperature 98.6, respiration of 20, pulse rate of 86, blo od pressure of 125/73 with O2 saturation 100% on room air. GENERAL: A 58-year-old female in no apparent distress. Denies any chest discomfort. Chest discomf ort, somewhat improved with nitroglycerin. HEENT: Atraumatic, normocephalic, Sclerae are anicteric. Moist mucous membrane, no oral lesion. NECK: Supple, no JVD, no carotid bruit. LUNGS: Clear to auscultation bilaterally, no wheezing, rales or rhonchi. HEART: S1, S2 present. Regular rate and rhythm. Healed midline scar from previous CABG. No signif icant murmurs appreciated. ABDOMEN: Soft, nontender, bowel sounds present. EXTREMITIES: No edema or calf tenderness. Right upper extremity PICC line noted. NEUROLOGIC: Grossly nonfocal, moves all four extremities. PSYCHIATRIC: Alert, awake, oriented x3. SKIN: Warm and dry. LYMPH NODES: No palpable lymph nodes in the neck. LABORATORY DATA: 1. CBC showed WBC 5.6 with hemoglobin 11.5, hematocrit 32.4, platelet 185. Chemistries showed sodiu m 139, potassium 4, chloride 106, bicarbonate 24, BUN 10, creatinine 0.91. 2. Troponin was negative. BUN 10, creatinine 0.91. CBC showed WBC 5.6 with hemoglobin 11.5, hemato crit 32.4 and platelet count 185. 3. EKG by my review showed sinus rhythm with nonspecific ST-T wave changes in the anterior lead. IMPRESSION: 1. Chest discomfort, atypical. 2. Coronary artery disease, status post coronary artery bypass graft. 3. Moderate to severe mitral regurgitation on the last echocardiogram. 4. Hypertension. 5. History of cerebrovascular without residual deficit. 6. History of breast cancer status post bilateral mastectomy. 7. Acute promyelocytic leukemia, currently on chemotherapy at [facility]. 8. History of questionable intracranial bleed. The patient is unable to provide details. 9. Body mass index 31. PLAN: The patient will be monitored on the telemetry unit. She declined aspirin due to questionable intracranial bleed. This was told to her at [facility]. Echocardiogram will be obtained. We will try to obtain records from [facility]. Home medications will be confirmed and resumed. Vital sign s q.4 hourly. Nitroglycerin sublingual as needed.
[2018-04-13 18:23] LABS: Troponin I Less than 0.010 ng/mL (< 0.028)
[2018-04-13] MEDS: Famotidine 20 MG TAB PO SCH (21:21)
[2018-04-13] MEDS: Metoprolol Tartrate 25 MG TAB PO SCH (21:21)
[2018-04-13] MEDS: Docusate 100 MG CAP PO SCH (21:21)
[2018-04-13] MEDS: Lacosamide 50 mg Tablet PO SCH (21:22)
[2018-04-13] MEDS ORDERED: Furosemide 80 MG TAB PO PRN (22:04)
[2018-04-13 22:12] LABS: Troponin I Less than 0.010 ng/mL (< 0.028)
[2018-04-14] MEDS: Metoprolol Tartrate 25 MG TAB PO SCH (08:53)
[2018-04-14] MEDS: Docusate 100 MG CAP PO SCH (08:53)
[2018-04-14] MEDS: Famotidine 20 MG TAB PO SCH (08:53)
[2018-04-14] MEDS ORDERED: valACYclovir 500 MG TAB PO SCH (09:00)
[2018-04-14] MEDS ORDERED: Anastrozole 1 MG TAB PO SCH (09:00)
[2018-04-14] MEDS ORDERED: Potassium Chloride 10 MEQ TAB PO SCH (09:00)
[2018-04-14] MEDS ORDERED: Magnesium Oxide 250 MG TAB PO SCH (09:00)
[2018-04-14] MEDS ORDERED: NIFEdipine XL 30 MG TAB PO SCH (09:00)
[2018-04-14] MEDS: Lacosamide 50 mg Tablet PO SCH (10:12)
--- NOTE | 2018-04-14 10:25 | PDOC.CTH ---
Cardiology Progress Note - Subjective pt. seen and eval. no new events over night. No complaints. - Objective Vital Signs Temp Pulse Resp BP Pulse Ox 04/14/18 07:35 98.3 F 85 18 132/66 94 L 04/14/18 04:00 98.3 F 85 18 118/63 93 L Weight 191 lb 6 oz 04/13/18 04/14/18 04/15/18 06:59 06:59 06:59 Intake Total 1220 Output Total 1300 Balance -80 - Physical Examination General/Neuro: alert & oriented x3 Neck: carotid US brisk Lungs: CTA Heart: RRR Abdomen: NT/ND, soft Extremities: other: (no edema) - Labs Result Diagrams: 04/13/18 08:50 04/13/18 08:50 Troponin/CKMB CK-MB (CK-2) 0.5 ng/mL (0-6.6) 04/13/18 08:50 Troponin I Less than 0.010 ng/mL (< 0.028) 04/13/18 21:42 - Assessment/Plan 1. Chest pain: non-cardiac. hx. of CAD,ptca/stents-stable. 2. breast cancer.per oncology. Tx'd in the past 3. Leukemia- undergoing therapy at [facility]. 4. On chemotherapy_ Echo tis AM: nl EF. Mod-severe MR,TRFederico Hagan to D/C pt. F/U with me or [employer] in the office in a couple weeks.
[2018-04-14 12:24] VITALS: BP 113/59; TEMP 98.1
--- NOTE | 2018-04-14 22:37 | DIS ---
DATE OF DISCHARGE: 04/14/2018 DISCHARGE DISPOSITION: Home. FOLLOWUP: Follow up with primary care physician, Dr. Mc in 1 week. Follow up with cardiology, Dr. Mitchell, in 2 weeks. ALLERGIES: No known drug allergies. Patient was seen and examined on the day of discharge, denies any new complaints. BRIEF HOSPITAL COURSE: Patient is a 58-year-old female with coronary artery disease status post CABG , presented to the emergency room with chest discomfort. Please refer to the history and physical fo r further details. The patient was admitted to the hospital with a diagnosis of chest discomfort, rule out acute coronar y syndrome. Serial troponins were negative. Patient was evaluated by cardiology, Dr. Mitchell. An echo cardiogram was done that showed left ventricular ejection fraction of 50%-55% with zuscsbxs-se-bqijcc mitral regurgitation and eomkmebe-sr-yrpgko tricuspid regurgitation. There was also pwvd-lz-aagjzoa e pulmonary regurgitation. Patient has been cleared by Dr. Mitchell for discharge. She declined aspirin due to questionable intracranial bleed in the past. Her oncologist at [facility] also told her n ot to take aspirin. FINAL DIAGNOSES: 1. Chest discomfort, acute coronary syndrome ruled out. 2. Coronary artery disease, status post coronary artery bypass grafting. 3. Valvular insufficiency as discussed above. 4. Hypertension. 5. History of cerebrovascular accident without residual deficit. 6. History of breast cancer, status post bilateral mastectomy. 7. Acute promyelocytic leukemia, currently on chemotherapy. 8. Obesity with a BMI of 31. 9. Questionable intracranial bleed. Plan of care was discussed with the patient. She stated understanding.
== END 2018-04-14 12:51 | disposition home or self-care (01) ==
LOC: ERS 08:18 → INTOOBSV 11:40 → 2NO 11:40
PROVIDERS: ADMIT Internal Medicine; ATTEND Internal Medicine
DX: R07.89 Other chest pain (principal); I25.10 Atherosclerotic heart disease of native coronary artery without angina pectoris; I10 Essential (primary) hypertension; C92.40 Acute promyelocytic leukemia, not having achieved remission; E66.9 Obesity, unspecified; Z68.31 Body mass index [BMI] 31.0-31.9, adult; Z87.891 Personal history of nicotine dependence; Z95.5 Presence of coronary angioplasty implant and graft; Z86.73 Personal history of transient ischemic attack (TIA), and cerebral infarction without residual deficits; Z85.3 Personal history of malignant neoplasm of breast; Z79.899 Other long term (current) drug therapy
CPT/HCPCS: 71045; 80053; 82553; 84484 ×2; 85025; 93005; 93306; 96360; 96361; 99285; G0378; 36415

== ENCOUNTER 2019-04-26 08:07 | Day surgery (SDC) | payer MEDICARE, OTHER ==
--- NOTE | 2019-04-25 11:15 | HP ---
HISTORY OF PRESENT ILLNESS: Darya Guajardo is a 59-year-old black female, who recently visited family in the [facility] and had noticed an incisional hernia developed in the medial aspect of an open right subcostal scar from an open cholecystectomy. Plan is for robot mesh repair of this incisional hernia as an outpatient. The patient has a history of 2017 single-vessel bypass off pump by Dr. Stringer. The patient saw Dr. Mitchell recently. I have personally discussed with Dr. Mitchell, and as the patient is asymptomatic from a coronary standpoint, she is safe to proceed with planned operation robot mesh repair of incisional hernia. ALLERGIES: NONE. TOBACCO: None. ALCOHOL: None. MEDICATIONS: 1. Nifedipine 30 mg once a day. 2. Potassium chloride ER 20 mEq a day. 3. Valacyclovir daily. 4. 50 mg a day. 5. 10 mg a day. 6. Metoprolol 25 mg with food twice a day. 7. Furosemide 40 mg a day. 8. Flonase. PAST MEDICAL HISTORY: Hypertension; history of left breast cancer in February 2015, left modified radical mastectomy, T2 N2 M0, completed chemotherapy; MediPort removed; invasive pleomorphic lobular carcinoma; past history of stroke; family history of cancer in cerebral aneurysms. Atypical chest pain, noncardiac, evaluation by Cardiology. Promyelocytic leukemia treated at [facility], leading to a bleed, cerebral. PAST SURGICAL HISTORY: October 2014, incarcerated umbilical hernia repair of the omentum, PVP mesh repair that I performed; February 2015, right simple mastectomy, left modified radical mastectomy; 03/13/2015, right subclavian vein MediPort, subsequent removal in the office; 03/27/2015, debridement of left modified radical mastectomy wound with closure; 12/18/2015, Dr. Stringer single-vessel coronary artery bypass, off pump, MCCRACKEN, LAD; 05/01/2016, removal of MediPort, placement of new right subclavian vein MediPort due to dysfunction; 11/09/2017, central line. Echocardiogram 04/14/2018 with EF 50% to 55%. Normal LV function, adhlsgha-vh-owjcbk tricuspid, iijf-jr-yixcmskn pulmonic regurgitation, normal aortic valve. REVIEW OF SYSTEMS: Ten-point noncontributory otherwise. PHYSICAL EXAMINATION: VITAL SIGNS: Weight 224 pounds, 65 inches, 37 BMI, blood pressure 182/107, heart rate 113, temperature 96.4 degrees. LUNGS: Clear to auscultation. CARDIAC: Regular rate and rhythm with 1 to 2/6 ejection murmur. ABDOMEN: Soft, obese. Right subcostal scar, medial aspect, incisional hernia, reducible, abdomen panniculus. EXTREMITIES: Unremarkable. Palpable pulses. ASSESSMENT/PLAN: 1. Incisional hernia. Plan robot mesh repair. She understands, risks, benefits, and consents. 2. Stable coronary artery disease, asymptomatic. Discussed with Dr. Nigel Mitchell. No preoperative assessment necessary as she is asymptomatic and less than 5 years from her bypass. 3. History of leukemia. 4. History of breast cancer. 5. Hypertension. 6. Obesity. Job ID: [id number]
[2019-04-25 15:43] VITALS: BMI 37.3
[2019-04-26] MEDS ORDERED: Ketorolac Tromethamine 30 MG/ML VIAL ONE (09:36)
[2019-04-26 10:06] LABS: Mean Corpuscular HGB CONC 34.8 g/dL (32.0-36.0); Mean Corpuscular Hemoglobin 30.8 pg (27.0-31.0); Mean Corpuscular Volume 88.6 fL (78.0-98.0); Mean Platelet Volume 6.7 fL (7.4-10.4); Platelet Count 217 thou/uL (130-400); RBC Distribution Width 12.8 % (11.5-14.5); White Blood Cell (WBC) Count 5.6 thou/uL (4.8-10.8)
[2019-04-26 10:28] LABS: Anion Gap 11 mmol/L (10-20); BUN (Urea Nitrogen) 10 mg/dL (9.8-20.1); Calc. Creatinine Clearance 110 mL/min (70-130); Calcium 9.6 mg/dL (7.8-10.44); Carbon Dioxide 25 mmol/L (23-31); Chloride 106 mmol/L (98-107); Estimated GFR-MDRD 81; Glucose 103 mg/dL (80-115); Sodium 138 mmol/L (136-145)
[2019-04-26] MEDS ORDERED: Bupivacaine HCl 0.5%/Epinephrine 1:200,000/PF 30 ml Vial ONE (11:08)
[2019-04-26] MEDS ORDERED: Lidocaine 2% Jelly 5 ML TUBE ONE (11:12)
[2019-04-26] MEDS ORDERED: Fentanyl 100 MCG/2 ML VIAL ONE ×3 (11:12→14:54)
[2019-04-26] MEDS ORDERED: Glycopyrrolate 0.2 MG/ML 5 ML SYRINGE ONE (12:33)
[2019-04-26] MEDS ORDERED: Rocuronium Bromide 10 MG/ML (10ML VIAL) ONE (12:33)
[2019-04-26] MEDS ORDERED: Dexamethasone 20 MG/5 ML VIAL ONE (12:33)
[2019-04-26] MEDS ORDERED: PROPOFOL 200 MG/20 ML VIAL ONE (12:33)
[2019-04-26] MEDS ORDERED: Ondansetron PF 4 MG/2 ML Vial ONE (12:33)
[2019-04-26] MEDS ORDERED: Lidocaine 1% PF 5 ML VIAL ONE (12:33)
[2019-04-26] MEDS ORDERED: Morphine 4 MG/ML VIAL ONE (15:15)
[2019-04-26] MEDS ORDERED: Morphine 2 MG/ML SYRINGE ONE (15:53)
[2019-04-26] MEDS ORDERED: HYDROcodone/Acetaminophen 5/325 mg Tablet ONE (16:38)
--- NOTE | 2019-04-26 18:19 | EKG ---
Test Reason : PREOP Blood Pressure : / mmHG Vent. Rate : 077 BPM Atrial Rate : 077 BPM P-R Int : 108 ms QRS Dur : 106 ms QT Int : 416 ms P-R-T Axes : 037 041 011 degrees QTc Int : 470 ms Sinus rhythm with short AL Possible Inferior infarct , age undetermined Nonspecific ST-T changes Abnormal ECG Confirmed by DR. Horacio LARSEN ([id number]) on 04/26/2019 6:18:49 PM Referred By: CORTNEY Confirmed By:DR. Horacio LARSEN
--- NOTE | 2019-04-26 21:55 | OP ---
DATE OF PROCEDURE: 04/26/2019 PREOPERATIVE DIAGNOSES: 1. Incisional hernia, medial right subcostal. 2. Open gallbladder scar. 3. Morbid obesity. POSTOPERATIVE DIAGNOSES: 1. Incisional hernia, medial right subcostal. 2. Open gallbladder scar. 3. Morbid obesity. 4. Adhesions. PROCEDURES PERFORMED: Robotic adhesiolysis and repair of incisional hernia with reinforcement of fascial closure with Ventralight mesh 9 cm diameter coated. ANESTHESIA: General, local 0.5% Marcaine with epinephrine. DESCRIPTION OF PROCEDURE: The patient was taken to the operating room, where under general anesthesia, infraumbilical incision was made. Pneumoperitoneum to 15 mmHg was obtained with a Veress needle, replaced with an 11 mm extended balloon port. A robot scope inserted and right lower quadrant and left lower quadrant incision was made, 8 mm port was placed. Robot docked. Robot laparoscopic adhesiolysis undertaken, freeing adhesions from the midline up to the hernia defect in the medial subxiphoid area. A large amount of incarcerated omentum was dissected free. Hemostasis gained with the cautery reduced out of the hernia sac. The hernia defect was about 4 cm. Pneumoperitoneum reduced to 9 mmHg and continuous suture #1 V lock suture used to close the defect to and fro. Once this was closed, mesh was tailored to diameter and held in place with continuous suture of 2-0 V-Loc suture. Once this was completed, good hemostasis noted and all needles were removed and all instrument counts were correct. All skin incisions closed with interrupted subdermal 4-0 Monocryl and [place] glue applied. Job ID: [id number]
== END 2019-04-26 17:10 | disposition home or self-care (01) ==
LOC: SDC 08:07
PROVIDERS: ATTEND Specialist
PROC: 0WUF4JZ Supplement Abdominal Wall with Synthetic Substitute, Percutaneous Endoscopic Approach (ICD-10-PCS; principal; 2019-04-26)
DX: K43.2 Incisional hernia without obstruction or gangrene (principal); I25.10 Atherosclerotic heart disease of native coronary artery without angina pectoris; I10 Essential (primary) hypertension; E66.9 Obesity, unspecified; Z68.37 Body mass index [BMI] 37.0-37.9, adult; Z79.899 Other long term (current) drug therapy; Z95.1 Presence of aortocoronary bypass graft
CPT/HCPCS: 80048; 85027; 93005; 93010; C1781; J0131; J0670; J0690; J1100; J1885; J2001; J2270; J2405; J2704; J3010

== ENCOUNTER 2019-06-07 11:00 | Outpatient (CLI) | payer MEDICARE, OTHER ==
--- NOTE | 2019-06-07 12:59 | BD ---
DEXA DENSITOMETRY: INDICATIONS: Postmenopausal screening. FINDINGS: LUMBAR SPINE BMD (g/cm2) T-SCORE L1 1.118 1.2 L2 1.243 2.0 L3 1.085 0.0 L4 1.108 0.4 TOTAL 1.136 0.8 FEMORAL NECK 0.808 -0.4 TOTAL 1.104 1.3 Total lumbar density on 04/20/2017 1.105 and on 11/27/2015 1.160. Total femur density on 04/20/2017 1.105 and on 11/27/2015 1.099. IMPRESSION: The bone mineral density of the lumbar spine and femoral neck are within the normal range. POS: [facility]
== END 2019-06-07 11:01 | disposition home or self-care (01) ==
LOC: BICMAMMO 11:00
PROVIDERS: ATTEND Internal Medicine Medical Oncology
DX: Z13.820 Encounter for screening for osteoporosis (principal); Z78.0 Asymptomatic menopausal state; C50.919 Malignant neoplasm of unspecified site of unspecified female breast; T38.6X5A Adverse effect of antigonadotrophins, antiestrogens, antiandrogens, not elsewhere classified, initial encounter
CPT/HCPCS: 77080

== ENCOUNTER 2019-09-22 07:11 | Day surgery (SDC) | payer MEDICARE, OTHER ==
--- NOTE | 2019-09-19 14:38 | HP ---
HISTORY OF PRESENT ILLNESS: The patient is morbidly obese, 34 BMI, 210 pounds, 65 inches. I did repair an umbilical hernia with mesh, open fashion, incarcerated with omentum in October 2014. I have seen her for left breast cancer, undergoing bilateral mastectomies. The patient more recently on 04/26/2019, underwent robot mesh repair incisional hernia, right subxiphoid, 9 cm Ventralight mesh reinforcement and an open gallbladder incision. The patient reported to the emergency room recently for abdominal pain. CAT scan demonstrating this recurrent hernia, umbilical area, incisional hernia. Soft tissue changes from previous surgeries. The patient is asymptomatic from a cardiac standpoint. She had a cardiac bypass in [address] Stringer. Plan is for robotic mesh repair of recurrent incisional hernia, umbilical region. ALLERGIES: NONE. SOCIAL HISTORY: Tobacco, none. Alcohol, none. MEDICATIONS: 1. Bystolic 10 mg a day. 2. Furosemide 40 mg a day. 3. Potassium chloride twice a day, 10 mEq. 4. Magnesium 500 mg once a day. 5. Anastrozole 1 mg a day. 6. Omeprazole 40 mg a day. 7. Hydralazine 25 mg t.i.d. 8. Tylenol No. 3 p.r.n. 9. Spironolactone 25 mg a day. 10. Samuel aspirin 81 mg a day. 11. [place] p.r.n. pain, 10/325. 12. Isosorbide dinitrate 30 mg a day. 13. Gabapentin 300 mg three times a day. PAST MEDICAL HISTORY: Hypertension; past stroke; left breast cancer status post chemotherapy, on oral chemotherapy; open cholecystectomy in 1986, right subcostal incision; umbilical hernia repair on 11/07/2014 by ks, right simple mastectomy; left modified radical mastectomy in February 2015; MediPort placement in March 2016; robotic incisional hernia repair with mesh on 04/26/2019. PHYSICAL EXAMINATION: VITAL SIGNS: 210 pounds, 65 inches. 185/117, 107, 98. HEAD, EARS, EYES, NOSE AND THROAT: Unremarkable. LUNGS: Clear to auscultation. CARDIAC: Regular rate and rhythm without murmur or gallop. ABDOMEN: Soft and nontender. Morbidly obese. Incisional hernia in umbilical area. EXTREMITIES: Unremarkable. ASSESSMENT: Incisional hernia. PLAN: Robot mesh repair. She understands the risks and benefits and consents. Job ID: [id number]
[2019-09-21 08:31] VITALS: BMI 33.3
[2019-09-22] MEDS ORDERED: Acetaminophen 500 MG TAB ONE (07:25)
[2019-09-22] MEDS ORDERED: Ketorolac Tromethamine 30 MG/ML VIAL ONE (07:25)
[2019-09-22 08:13] LABS: #Eosinphils 0.5 thou/uL (0.0-0.7); #Lymphocytes 1.5 thou/uL (1.20-3.40); #Monocytes 0.5 thou/uL (0.11-0.59); #Neutrophils 3.5 thou/uL (1.40-6.50); %Basophils 0.6 % (0.0-1.0); %Eosinophils 7.6 % (0.0-10.0); %Lymphocytes 25.6 % (21.0-51.0); %Monocytes 8.3 % (0.0-10.0); %Neutrophils 57.9 % (42.0-75.0); Hemoglobin 11.9 g/dL (12.0-16.0); Mean Corpuscular HGB CONC 33.6 g/dL (32.0-36.0); Mean Corpuscular Hemoglobin 29.9 pg (27.0-31.0); Mean Platelet Volume 6.5 fL (7.4-10.4); Platelet Count 279 thou/uL (130-400); RBC Distribution Width 13.3 % (11.5-14.5); Red Blood Cell (RBC) Count 3.96 mill/uL (4.20-5.40)
[2019-09-22 08:35] LABS: Anion Gap 11 mmol/L (10-20); BUN (Urea Nitrogen) 15 mg/dL (9.8-20.1); Calc. Creatinine Clearance 87 mL/min (70-130); Calcium 9.4 mg/dL (7.8-10.44); Carbon Dioxide 25 mmol/L (23-31); Chloride 105 mmol/L (98-107); Estimated GFR-MDRD 71; Glucose 116 mg/dL (80-115); Potassium 3.6 mmol/L (3.5-5.1); Sodium 137 mmol/L (136-145)
[2019-09-22] MEDS ORDERED: Lidocaine 1% w/Epinephrine 1:100K 20 ML VIAL ONE (09:43)
[2019-09-22] MEDS ORDERED: Bupivacaine 0.25% HCL 30 ML VIAL ONE (09:43)
[2019-09-22] MEDS ORDERED: Fentanyl 100 MCG/2 ML VIAL ONE ×2 (09:52→13:08)
[2019-09-22] MEDS ORDERED: Phenylephrine HCL 10 MG/ML VIAL ONE (10:04)
[2019-09-22] MEDS ORDERED: Rocuronium Bromide 10 MG/ML (10ML VIAL) ONE (10:29)
[2019-09-22] MEDS ORDERED: Succinylcholine Chloride 20 MG/ML 10 ml SYRINGE FS ONE (10:29)
[2019-09-22] MEDS ORDERED: Glycopyrrolate 0.2 MG/ML 5 ML SYRINGE ONE (10:29)
[2019-09-22] MEDS ORDERED: EPHEDRINE 25 MG/5 ML SYRINGE ONE (10:29)
[2019-09-22] MEDS ORDERED: Lidocaine 1% PF 5 ML VIAL ONE (10:29)
[2019-09-22] MEDS ORDERED: Dexamethasone 20 MG/5 ML VIAL ONE (10:29)
[2019-09-22] MEDS ORDERED: Ondansetron PF 4 MG/2 ML Vial ONE (10:29)
[2019-09-22] MEDS ORDERED: PROPOFOL 200 MG/20 ML VIAL ONE (10:29)
[2019-09-22] MEDS ORDERED: SUGAMMADEX SODIUM 200 MG/2 ML VIAL ONE (12:27)
--- NOTE | 2019-09-22 13:55 | OP ---
DATE OF PROCEDURE: 09/22/2019 PREOPERATIVE DIAGNOSES: 1. Incisional hernia/recurrent umbilical hernia. 2. Morbid obesity. 3. Prior history of open umbilical hernia repair of incarcerated omentum in 10/2014. POSTOPERATIVE DIAGNOSES: 1. Incisional hernia/recurrent umbilical hernia. 2. Morbid obesity. 3. Prior history of open umbilical hernia repair of incarcerated omentum in 10/2014. PROCEDURE PERFORMED: Robot laparoscopic adhesiolysis and 9 cm mesh reinforcement of primary fascial closure of recurrent umbilical hernia/incisional hernia, umbilical areas. ANESTHESIA: General, local with 0.5% Marcaine 30 mL mixed with 1% Xylocaine with epinephrine 20 mL. DESCRIPTION OF PROCEDURE: The patient was taken to the operating room, where under general anesthesia, abdomen was prepared with ChloraPrep and draped in routine fashion. Far lateral left subcostal incision was made. Pneumoperitoneum to 15 mmHg was obtained with a Veress needle, replacing with 8 mm port. Left subxiphoid incision made and a 12 port balloon placed. Videolaparoscope inserted. Right lateral far lateral incision made and an 8 mm port placed. There were adhesions to the midline from a prior open cholecystectomy. These were difficult to work around, but able to visualize the ports being placed. Robot was docked. The patient was properly positioned slightly Trendelenburg and robot adhesiolysis undertaken, freeing omental adhesions from the anterior abdominal wall, identifying the hernia defect. Falciform ligament was taken down. Good hemostasis noted. Pneumoperitoneum reduced to 9 mmHg and the 3.5 to 4 cm fascial defect closed with continuous to-and-fro sutures of 0 V-Loc. Two sutures were used. Once this was completed, the 9 cm mesh had been folded with the viscerally coated side against the viscera and mesh secured to the abdominal wall with continuous suture of #2-0 V-Loc. Once this was accomplished, needles were retrieved and all counts were correct. Pneumoperitoneum reduced. All instruments removed. All skin incisions were approximated with interrupted subdermal 4-0 Monocryl and [place] glue applied. Job ID: [id number]
[2019-09-22] MEDS ORDERED: Morphine 2 MG/ML SYRINGE ONE (15:05)
[2019-09-22] MEDS ORDERED: HYDROcodone/Acetaminophen 5/325 mg Tablet ONE (15:55)
== END 2019-09-22 16:23 | disposition home or self-care (01) ==
LOC: SDC 07:11
PROVIDERS: ATTEND Specialist
PROC: 0WUF4JZ Supplement Abdominal Wall with Synthetic Substitute, Percutaneous Endoscopic Approach (ICD-10-PCS; principal; 2019-09-22)
DX: K43.2 Incisional hernia without obstruction or gangrene (principal); I10 Essential (primary) hypertension; E78.5 Hyperlipidemia, unspecified; J30.2 Other seasonal allergic rhinitis; E66.01 Morbid (severe) obesity due to excess calories; Z68.34 Body mass index [BMI] 34.0-34.9, adult; Z85.3 Personal history of malignant neoplasm of breast; Z86.73 Personal history of transient ischemic attack (TIA), and cerebral infarction without residual deficits; Z87.891 Personal history of nicotine dependence; Z79.811 Long term (current) use of aromatase inhibitors; Z79.899 Other long term (current) drug therapy; Z95.1 Presence of aortocoronary bypass graft; Z95.5 Presence of coronary angioplasty implant and graft; Z98.890 Other specified postprocedural states
CPT/HCPCS: 49656; 80048; 85025; 93005; C1781; 36415; 93010; J0690; J1100; J1885; J2001; J2270; J2370; J2405; J2704; J3010; S0020

== ENCOUNTER 2019-10-09 16:06 | Inpatient (IN) | payer MEDICARE, OTHER ==
[~2019-10-09 16:06] MED LIST: Iopamidol-370 76% 500 ML 1 ML ONE
[2019-10-09] MEDS ORDERED: Ondansetron PF 4 MG/2 ML Vial ONE ×2 (16:35→17:46)
[2019-10-09 16:46] LABS: #Basophils 0.1 thou/uL (0.0-0.2); #Eosinphils 0.1 thou/uL (0.0-0.7); #Lymphocytes 1.8 thou/uL (1.20-3.40); #Monocytes 0.5 thou/uL (0.11-0.59); #Neutrophils 8.6 thou/uL (1.40-6.50); %Eosinophils 0.7 % (0.0-10.0); %Lymphocytes 16.3 % (21.0-51.0); %Monocytes 4.3 % (0.0-10.0); %Neutrophils 77.6 % (42.0-75.0); Hemoglobin 14.4 g/dL (12.0-16.0); Mean Corpuscular Hemoglobin 30.5 pg (27.0-31.0); Mean Corpuscular Volume 87.2 fL (78.0-98.0); Mean Platelet Volume 7.2 fL (7.4-10.4); Platelet Count 270 thou/uL (130-400); RBC Distribution Width 12.7 % (11.5-14.5)
[2019-10-09 17:11] LABS: ALT (SGPT) 11 U/L (8-55); AST (SGOT) 18 U/L (5-34); Albumin 4.4 g/dL (3.4-4.8); Alkaline Phosphatase 139 U/L (40-110); Anion Gap 20 mmol/L (10-20); BUN (Urea Nitrogen) 8 mg/dL (9.8-20.1); Bilirubin, Total 0.9 mg/dL (0.2-1.2); Calc. Creatinine Clearance 0 mL/min (70-130); Calcium 10.3 mg/dL (7.8-10.44); Carbon Dioxide 21 mmol/L (23-31); Chloride 100 mmol/L (98-107); Estimated GFR-MDRD 80; Globulin 4.7 g/dL (2.4-3.5); Glucose 157 mg/dL (80-115); Lipase 21 U/L (8-78); Potassium 3.9 mmol/L (3.5-5.1); Protein, Total 9.1 g/dL (6.0-8.3); Sodium 137 mmol/L (136-145)
[2019-10-09 17:33] LABS: CKMB 3.4 ng/mL (0-6.6)
[2019-10-09 17:55] LABS: Bacteria/HPF None Seen HPF (None Seen); Bilirubin Negative (Negative); Blood, Urine Trace (Negative); Clarity Clear (Clear); Glucose, Urine (Dipstick) 50 mg/dL (Negative); Leukocyte Negative Leu/uL (Negative); Nitrite Negative (Negative); Protein, Urine (Dipstick) 30 mg/dL (Neg-Trace); RBC/HPF 0-3 HPF (0-3); Squamous Epithelial 0-3 HPF (0-3); Urobilinogen Normal mg/dL (Less than 2); WBC/HPF 0-3 HPF (0-3)
--- NOTE | 2019-10-09 18:17 | CT ---
CT ABDOMEN AND PELVIS WITH CONTRAST: Comparison: 10-25-15 History: Nausea, vomiting, abdominal pain. Technique: Multiple contiguous axial images were obtained in a CT of the abdomen and pelvis with cont rast. Sagittal and coronal reformats were performed. FINDINGS: A gallbladder is not seen and has likely been removed. The liver, right kidney, adrenal glands, splee n, and pancreas are unremarkable. Subcentimeter hypodensities in the left kidney may represent cysts. Stranding changes seen in the omental fat in the anterior abdomen. This new compared to the prior exa mination. There are multiple small ventral hernias in the lower abdominal wall. There is an area of s oft tissue density measuring 2.5 cm in size in the region of one of hernias which may represent a sma ll amount of scarring or fat infarction within the hernia. Compared to the prior examination, the pa tient may have had prior hernia repair and there may be a piece of mesh overlying the majority of the defects. The large and small bowel are unremarkable. The appendix is normal. No abdominal or pelvic lymphadeno talha are seen. Atherosclerotic calcifications are seen in the aorta. Calcified fibroids are seen in the uterus. Degenerative changes are seen in the spine. The visualized inferior thorax is unremarkable. IMPRESSION: 1. Patient appears to have undergone interval post-surgical change for ventral hernias. A small resid ual ventral hernia is seen containing fat. There is stranding change in the mesenteric fat in the ant erior aspect of the abdomen. This could represent post-surgical change or could represent an area of omental infarction. 2. There is a 2.5 cm soft tissue density in the region where a prior ventral hernia containing fat wa s seen. This may represent an area of infarct at omental fat or scarring from prior surgery. POS: [facility]
--- NOTE | 2019-10-09 18:18 | RAD ---
SINGLE VIEW OF THE CHEST: Comparison: 01-22-19 History: Nausea, vomiting since this morning with chest pain. FINDINGS: Single view of the chest shows a normal sized cardiomediastinal silhouette with atherosclerotic calci fications in the aorta. There is no evidence of consolidation, mass, or pleural effusion. IMPRESSION: No evidence of acute cardiopulmonary disease. POS: [facility]
[2019-10-09 20:59] LABS: Lactic Acid 3.6 mmol/L (0.5-2.2)
[2019-10-09] MEDS ORDERED: Ondansetron PF 4 MG/2 ML Vial IVP PRN (21:26)
[2019-10-09] MEDS: Ondansetron PF 4 MG/2 ML Vial SLOW IVP PRN (21:31)
[2019-10-09] MEDS: Sodium Chloride 0.9% 1,000 ML IV SCH (21:32)
[2019-10-09 22:25] VITALS: BMI 34.6
[2019-10-09] MEDS ORDERED: Scopolamine 1.5 mg/72 hour Patch TOP PRN (23:04)
[2019-10-09] MEDS: Promethazine HCl 25 MG/ML VIAL IM PRN (23:20)
[2019-10-10] MEDS: Promethazine HCl 25 MG/ML VIAL IM PRN ×5 (03:24→23:36)
[2019-10-10] MEDS: Sodium Chloride 0.9% 1,000 ML IV SCH (03:25)
[2019-10-10] MEDS: Ondansetron PF 4 MG/2 ML Vial SLOW IVP PRN (05:42)
[2019-10-10 06:46] LABS: #Lymphocytes 1.7 thou/uL (1.20-3.40); #Monocytes 0.8 thou/uL (0.11-0.59); #Neutrophils 10.2 thou/uL (1.40-6.50); %Basophils 0.3 % (0.0-1.0); %Eosinophils 0.2 % (0.0-10.0); %Lymphocytes 13.6 % (21.0-51.0); Hemoglobin 13.9 g/dL (12.0-16.0); Mean Corpuscular HGB CONC 34.7 g/dL (32.0-36.0); Mean Corpuscular Hemoglobin 30.2 pg (27.0-31.0); Mean Corpuscular Volume 86.9 fL (78.0-98.0); Mean Platelet Volume 6.8 fL (7.4-10.4); Platelet Count 260 thou/uL (130-400); RBC Distribution Width 12.9 % (11.5-14.5); Red Blood Cell (RBC) Count 4.61 mill/uL (4.20-5.40); White Blood Cell (WBC) Count 12.8 thou/uL (4.8-10.8)
[2019-10-10 07:10] LABS: ALT (SGPT) 10 U/L (8-55); AST (SGOT) 23 U/L (5-34); Albumin 4.1 g/dL (3.4-4.8); Alkaline Phosphatase 120 U/L (40-110); Anion Gap 17 mmol/L (10-20); BUN (Urea Nitrogen) 6 mg/dL (9.8-20.1); Bilirubin, Total 0.8 mg/dL (0.2-1.2); Calc. Creatinine Clearance 107 mL/min (70-130); Calcium 9.5 mg/dL (7.8-10.44); Carbon Dioxide 20 mmol/L (23-31); Chloride 103 mmol/L (98-107); Estimated GFR-MDRD 86; Globulin 4.4 g/dL (2.4-3.5); Glucose 153 mg/dL (80-115); Potassium 3.9 mmol/L (3.5-5.1); Protein, Total 8.5 g/dL (6.0-8.3); Sodium 136 mmol/L (136-145)
[2019-10-10] MEDS ORDERED: Ondansetron ODT 8 MG TAB SL PRN (08:14)
[2019-10-10] MEDS ORDERED: Ondansetron ODT 8 MG TAB PO PRN (08:14)
[2019-10-10] MEDS ORDERED: Ondansetron ODT 4 MG TAB PO PRN (08:14)
[2019-10-10] MEDS ORDERED: Magnesium Sulfate 3 GM in Sodium Chloride 0.9% 100 ML IVPB SCH (08:15)
[2019-10-10] MEDS: Lactated Ringer's 1,000 ML IV SCH ×2 (08:28→16:08)
[2019-10-10] MEDS ORDERED: Prevnar 13-Val Conj/PF 0.5 ML SYRINGE IM ONE (09:00)
[2019-10-10] MEDS ORDERED: PROVENTIL INHALER 6.7 G (200 INHALATIONS) INH PRN (10:26)
--- NOTE | 2019-10-10 11:49 | HP ---
HISTORY OF PRESENT ILLNESS: Darya Guajardo is a 59-year-old morbidly obese, black female, 5 feet 5 inches, 208 pounds, 34 BMI, presents to the hospital on Wednesday evening with acute onset of nausea, vomiting, and epigastric burning pain as well as reflux symptoms, heartburn, burning pain in her chest, onset Wednesday. She has had repeated nausea and vomiting and could not hold anything down. She was seen in the emergency room, evaluated by Dr. Mercado. Her vital signs were noted to be normal. White count 11 and hemoglobin 14. Basic metabolic profile normal, but her lactic acid was 4.6. The patient was given IV fluids, antiemetics, and a CAT scan obtained revealed postsurgical changes without acute findings. The patient reports a long history of reflux, daytime and nighttime. She reports occasional dysphagia. She has never had an EGD or colonoscopy. She reports that Dr. Mc performed what sounds to be a Cologuard last year and was told this was normal. The patient has a history of coronary artery disease undergoing coronary artery bypass grafting in the past and is followed by Dr. Mitchell. She had a cardiac stress test last year prior to undergoing a robotic incisional hernia repair (recurrent umbilical) with nc. She denies cardiac symptoms. Plan at this time is IV hydration and GI consultation. Overnight, her nausea and vomiting has not improved. Would need to rule out esophageal stricture or esophagitis or ulcer disease. We will place her on b.i.d. PPIs. ALLERGIES: NONE. SOCIAL HISTORY: Tobacco, none. Alcohol, none. MEDICATIONS: At home: 1. . 2. Vimpat 50 mg daily. 3. Protonix 40 mg a day. 4. Nifedipine 30 mg a day. 5. Metoprolol 25 mg b.i.d. 6. Gabapentin 300 mg b.i.d. 7. Ventolin inhaler one puff q.4 hours p.r.n. 8. Cyclobenzaprine. 9. Flexeril 1 tablet p.o. b.i.d. p.r.n. 10. Potassium chloride 10 b.i.d. 11. Furosemide 40 mg a day. 12. Magnesium 500 b.i.d. 13. Anastrozole one tablet p.o. b.i.d. 14. Valacyclovir. 15. Fluticasone spray. 16. Tums. PAST SURGICAL HISTORY: Extensive. PAST MEDICAL HISTORY: 1. Hypertension. 2. Past stroke. 3. Left breast cancer status post chemotherapy, status post left modified radical mastectomy and right simple mastectomy. 4. Open cholecystectomy in 1986 right subcostal incision. 5. Umbilical hernia repair on 11/07/2014 performed by me. 6. MediPort placed removed and replaced. 7. Robotic incisional hernia repair with mesh in her upper abdomen to confluence of the midline incision subcostal incision. 8. More recent last year, robotic incisional hernia with mesh, recurrent umbilical hernia. I had counseled her prior to that on importance of weight loss, but the patient did the best what she could, was having problem with hernias and we proceeded with repair. 9. Dr. Stringer, single-vessel coronary artery bypass grafting off pump in August 2015, followed by Dr. Mitchell. Stable coronary artery disease with asymptomatic symptomatology. 10. Morbid obesity. REVIEW OF SYSTEMS: Ten-point noncontributory otherwise. PHYSICAL EXAMINATION: VITAL SIGNS: Height 5 feet 5 inch, 208 pounds, and 34 BMI. 98.5, 111, 18, and 146/94. LUNGS: Clear to auscultation. CARDIAC: Regular rate and rhythm without murmur or gallop. ABDOMEN: Soft and nontender. No masses. Previous hernia repairs intact. EXTREMITIES: No ankle edema. NEUROLOGIC: Intact. LABORATORY DATA: As noted. ASSESSMENT AND PLAN: 1. Persistent nausea and vomiting with a history of gastroesophageal reflux disease. We will ask Gastroenterology to see her, consider an upper endoscopy. 2. Never has had a colonoscopy, but by history, I suspect she may have had a Cologuard with Dr. Mc. Consider colonoscopy in the future. 3. Coronary artery disease, stable. 4. Gastroesophageal reflux disease. 5. History of left breast cancer status post bilateral mastectomies, modified radical left and right simple. Job ID: [id number]
--- NOTE | 2019-10-10 17:01 | EKG ---
Test Reason : STAT Blood Pressure : / mmHG Vent. Rate : 115 BPM Atrial Rate : 115 BPM P-R Int : 116 ms QRS Dur : 096 ms QT Int : 378 ms P-R-T Axes : 054 062 050 degrees QTc Int : 522 ms Sinus tachycardia with occasional Premature ventricular complexes Possible Left atrial enlargement Nonspecific ST abnormality Prolonged QT Abnormal ECG Confirmed by DR. Horacio LARSEN (3) on 10/10/2019 5:01:12 PM Referred By: CORTNEY Confirmed By:DR. Horacio LARSEN
--- NOTE | 2019-10-10 17:43 | CON ---
DATE OF CONSULTATION: 10/10/2019 REASON FOR CONSULTATION: Nausea and vomiting, dysphagia. CONSULTING PROVIDER: Kj Diehl MD. HISTORY OF PRESENT ILLNESS: The patient is a 59-year-old female with past medical history of morbid obesity, coronary artery disease status post CABG, hypertension, cerebrovascular accident, and breast cancer status post bilateral mastectomy and chemotherapy, presenting with acute onset of nausea and vomiting. She states that she was in her usual state of health until approximately 2 days ago when during a cooking episode with her children on Wednesday, she began to have increasing dysphagia, characterized as the sensation of food was getting stuck at the level of the mid chest. At that time, she was eating primarily rice and spinach with no ingestion of more solid foods due to the spicy nature of the food at that time. However, during the day, she states that she began to have increased pain, for which she took cyclobenzaprine that did not noemi her pain, which then prompted her to take hydrocodone and then in addition to that ibuprofen 800 mg. She did feel some alleviation of her pain after the ibuprofen, but early the next morning, began to have increased nausea and vomiting with 5 to 6 discrete episodes of nausea and vomiting of greenish-colored fluid over the next 12 to 16 hours. With the increased nausea and the vomiting episodes not abating and with no clear alleviating or exacerbating factors, it prompted her to seek healthcare assistance at the [facility] ER. While in the ER, the patient underwent a CT scan that did show the presence of multiple ventral hernias, some of which may be indicative of omental infarction, but also evidence of prior ventral hernia repair with mesh in place. Upon further questioning the patient, she denies any episodes of acid reflux with no complaints of substernal pyrosis, acid taste in the back of her mouth, or epigastric abdominal pain. Currently, she denies any fevers, chills, odynophagia, hematemesis, melena, hematochezia, diarrhea, constipation, or weight loss. REVIEW OF SYSTEMS: A 10-category review of systems was obtained with all responses negative except for the pertinent positives as listed in HPI. PAST MEDICAL HISTORY: As per HPI. PAST SURGICAL HISTORY: Multiple surgeries includin. Left modified radical mastectomy. 2. Right simple mastectomy. 3. Open cholecystectomy in 1986. 4. Umbilical hernia repair. 5. Robotic incisional hernia repair with mesh in the upper abdomen. 6. Robotic incisional hernia repair with mesh for recurrent umbilical hernia. 7. Single-vessel coronary artery bypass graft. FAMILY HISTORY: Denies any GI malignancies. SOCIAL HISTORY: Denies any tobacco, alcohol, or illicit drug use. OUTPATIENT MEDICATIONS: Reviewed. ALLERGIES: NO KNOWN DRUG ALLERGIES. PHYSICAL EXAMINATION: VITAL SIGNS: Temperature 98.2, pulse 114, blood pressure 142/89, respiratory rate 20, and saturating 96% on room air. GENERAL: The patient was lying in bed, in no acute distress. Alert and oriented x4. HEENT: Normocephalic and atraumatic. NECK: Supple. No JVD or scleral icterus noted. CARDIOVASCULAR: Tachycardic rate, but regular rhythm with no discernable murmurs, gallops, or rubs. RESPIRATORY: Clear to auscultation bilaterally with no discernable wheezes or rales. ABDOMEN: Normoactive bowel sounds. Soft, nondistended, mild tenderness to palpation in the epigastric and periumbilical regions. EXTREMITIES: No cyanosis, clubbing, or edema. LABORATORY DATA: CBC with a white blood cell count of 12.8, hemoglobin 13.9, hematocrit 40, and platelets 260. Chemistry with a sodium of 136, potassium 3.9, chloride 103, CO2 of 20, BUN 6, creatinine 0.82, and glucose 153. AST 23, ALT 10, alkaline phosphatase 120, and total bilirubin 0.8. IMAGING DATA: CT of the abdomen and pelvis was obtained on 10/09/2019, which showed evidence of prior cholecystectomy. There were stranding changes seen in the omental fat in the anterior abdomen, which was new compared to prior examinations. There were multiple small ventral hernias in the lower abdominal wall as well with an area of soft tissue density measuring 2.5 cm in size in the region of a prior hernia, which now represents a small amount of scarring or fat infarction within the hernia. The large and small bowel were both unremarkable and calcified fibroids were seen in the uterus with degenerative changes in the spine. ASSESSMENT AND PLAN: The patient is a 59-year-old female with past medical history of morbid obesity, coronary artery disease status post coronary artery bypass graft, hypertension, cerebrovascular accident, breast cancer status post bilateral mastectomy and chemotherapy, and multiple abdominal surgeries with recent ventral hernia repair, presenting with sudden onset of nausea and vomiting. 1. Nausea and vomiting: The patient is presenting with an acute onset of nausea and vomiting, characterized as approximately 5 to 6 discrete episodes of bilious vomiting over the last 12 to 24 hours. She denies any clear alleviating or exacerbating factors, but she did take multiple pain medications including cyclobenzaprine, hydrocodone, and ibuprofen prior to the onset of her symptoms. She currently denies any acid reflux symptoms, but given her morbid obesity, she is at risk for acid reflux. She currently denies any neurological changes, but with her history of cerebrovascular accident in the past and intracranial abnormality is within the realm of possibility (albeit unlikely). Current differential could include esophagitis, gastritis, peptic ulcer disease, idiosyncratic reaction from pain medications, side effect from narcotic use, Helicobacter pylori infection, omental infarction as a result of the multiple ventral hernias, and/or gastrointestinal neoplasm (less likely). Recommendations: a. Would schedule the patient on Zofran 8 mg b.i.d. with promethazine for any breakthrough nausea and vomiting. b. Pain control per primary team, but would attempt to avoid narcotics as it can generate more nausea and vomiting. c. Could consider placing the patient on a liquid diet today, but make n.p.o. at midnight in anticipation for esophagogastroduodenoscopy tomorrow. d. Would plan for esophagogastroduodenoscopy tomorrow morning for intraluminal evaluation as the source of her nausea and vomiting. e. Could consider infectious workup given the elevated white blood cell count and tachycardia on physical examination as a possible source of her nausea and vomiting. 2. Dysphagia: The patient is presenting with fairly acute onset of dysphagia, characterized as the sensation of food getting stuck at the level of the mid chest. With the ingestion of only rice and spinach, the patient states that she had been having recent symptoms from this and had not been able to tolerate solid food due to her increased nausea and vomiting starting yesterday. At this time, the most likely reason for her dysphagia would be either the recurrent episodes of nausea and vomiting that have been happening since yesterday or even a possible silent reflux generating inflammation of the distal esophagus and/or stricture formation. Recommendations: a. Could consider placing the patient on a clear liquid diet until upper endoscopy. b. We will plan for upper endoscopy tomorrow for further evaluation of her dysphagia. We will continue to follow. Please call with any questions. Job ID: [id number]
[2019-10-10] MEDS: Ondansetron PF 4 MG/2 ML Vial IVP SCH (20:43)
[2019-10-10] MEDS: Pantoprazole 40 MG VIAL IVP SCH (20:43)
[2019-10-10] MEDS: Enoxaparin Sodium 40 MG/0.4 ML SYRINGE SC SCH (20:43)
[2019-10-10] MEDS: Metoprolol Tartrate 25 MG TAB PO SCH (20:44)
[2019-10-11] MEDS: Promethazine HCl 25 MG/ML VIAL IM PRN (02:54)
[2019-10-11 05:17] LABS: #Basophils 0.1 thou/uL (0.0-0.2); #Lymphocytes 2.1 thou/uL (1.20-3.40); #Monocytes 1.3 thou/uL (0.11-0.59); #Neutrophils 12.5 thou/uL (1.40-6.50); %Basophils 0.4 % (0.0-1.0); %Eosinophils 0.1 % (0.0-10.0); %Lymphocytes 13.1 % (21.0-51.0); %Monocytes 8.3 % (0.0-10.0); Hemoglobin 12.9 g/dL (12.0-16.0); Mean Corpuscular HGB CONC 34.8 g/dL (32.0-36.0); Mean Corpuscular Hemoglobin 30.7 pg (27.0-31.0); Mean Corpuscular Volume 88.3 fL (78.0-98.0); Platelet Count 262 thou/uL (130-400); RBC Distribution Width 12.9 % (11.5-14.5); Red Blood Cell (RBC) Count 4.18 mill/uL (4.20-5.40)
[2019-10-11 05:36] LABS: Calcium 9.7 mg/dL (7.8-10.44); Chloride 104 mmol/L (98-107); Potassium 3.6 mmol/L (3.5-5.1); Sodium 133 mmol/L (136-145)
[2019-10-11 05:39] LABS: Albumin 3.7 g/dL (3.4-4.8)
[2019-10-11 05:40] LABS: Calc. Creatinine Clearance 102 mL/min (70-130); Carbon Dioxide 16 mmol/L (23-31); Estimated GFR-MDRD 81; Protein, Total 7.7 g/dL (6.0-8.3)
[2019-10-11 05:42] LABS: Glucose 122 mg/dL (80-115)
[2019-10-11 05:43] LABS: Anion Gap 16 mmol/L (10-20)
[2019-10-11 05:45] LABS: Alkaline Phosphatase 112 U/L (40-110)
[2019-10-11 05:46] LABS: BUN (Urea Nitrogen) 8 mg/dL (9.8-20.1)
[2019-10-11 05:47] LABS: AST (SGOT) 23 U/L (5-34)
[2019-10-11 05:48] LABS: ALT (SGPT) 11 U/L (8-55)
[2019-10-11] MEDS: Lactated Ringer's 1,000 ML IV SCH ×3 (06:36→17:16)
[2019-10-11] MEDS: Pantoprazole 40 MG VIAL IVP SCH (08:05)
[2019-10-11] MEDS: Metoprolol Tartrate 25 MG TAB PO SCH ×2 (08:05→20:29)
[2019-10-11] MEDS: Ondansetron PF 4 MG/2 ML Vial IVP SCH ×2 (08:05→20:28)
[2019-10-11] MEDS ORDERED: PROPOFOL 200 MG/20 ML VIAL ONE (09:43)
--- NOTE | 2019-10-11 11:24 | OP ---
DATE OF PROCEDURE: 10/11/2019 PROCEDURE PERFORMED: Esophagogastroduodenoscopy with biopsy. INDICATION FOR PROCEDURE: Nausea, vomiting, dysphagia. DESCRIPTION OF PROCEDURE: After the risks and benefits of the procedure were explained to the patient including risks of bleeding, infection, perforation, reactions to anesthesia, aspiration, and/or pain, informed consent was obtained. The patient was then taken to the endoscopy suite, where she was placed in the left lateral decubitus position, followed by introduction of propofol via Anesthesia support. Once adequate sedation was achieved, the standard gastroscope was introduced into the mouth with the intubation of the esophagus, stomach, and the proximal small intestines with the findings listed below. The patient tolerated the procedure well with no immediate perioperative complications. Upon conclusion of the procedure, all equipment was removed from the patient and she was transferred to PACU in satisfactory condition. FINDINGS: Esophagus: Normal-appearing mucosa was seen within the proximal esophagus; however, within the mid and distal esophagus, there were multiple linear ulcerations extending proximally from the gastroesophageal junction and extending from 40 cm to 26 cm past the incisors. They did not exhibit any high-risk stigmata of active or recent bleeding and was consistent with acid reflux/nausea/vomiting. Otherwise, there was no evidence of erosions, ulcerations, mass lesions, or active/recent bleeding. Stomach: Normal-appearing mucosa was seen in the gastric body, greater curvature, antrum, and incisura. There were 2 spots of mildly increased mucosal erythema in the gastric cardia and fundus, but did not have any other associated abnormalities with this. Otherwise, there was no evidence of erosions, ulcerations, mass lesions, or active/recent bleeding. Random gastric biopsies were taken from this region for evaluation of possible H. pylori. Duodenum: 3 to 4 superficial ulcerations measuring 2 to 4 mm in size were seen within the duodenal bulb without any high-risk stigmata of bleeding. They did have mildly erythematous mucosa surrounding each ulceration, but no evidence of perforation. Erosive changes were also seen within the second portion of the duodenum, but were very minor and measuring approximately 2 to 3 mm in length without overt ulceration. Otherwise, there was no evidence of mass lesions or active/recent bleeding. IMPRESSION: 1. Superficial duodenal ulcerations within the duodenal bulb and erosive changes in the second portion of the duodenum consistent with either Helicobacter pylori infection versus NSAID use (most likely reason for her nausea and vomiting). 2. [place] grade C reflux mediated erosive esophagitis extending 14 cm from the gastroesophageal junction (most likely due to her increased nausea and vomiting). 3. Two small patches of mildly erythematous mucosa in the proximal stomach of indeterminate clinical significance, status post random biopsies for Helicobacter pylori. RECOMMENDATIONS: 1. Continue the patient on PPI 40 mg twice daily for the next 8 weeks and then decrease to 40 mg daily after that. 2. Would avoid any NSAIDs (possible source of recent nausea, vomiting, and duodenal ulcers). 3. Continue aggressive antiemetic support. 4. Would advance the patient's diet to full liquid and then advance as tolerated afterwards. 5. Pain control per primary team. Would have the patient follow up in the GI clinic in 4 weeks for further monitoring of her acid reflux/dysphagia. At this time, the most likely reason for her nausea and vomiting would be the duodenal ulcerations with the likely source being NSAID abuse at home. We will follow peripherally for now given her improvement in the nausea and vomiting. Please call with any additional questions. Job ID: [id number]
[2019-10-11] MEDS ORDERED: Nitroglycerin 0.4 MG TAB (25 Tab Bottle) SL PRN (15:28)
[2019-10-11] MEDS ORDERED: Cyclobenzaprine 10 MG TAB PO PRN (15:28)
[2019-10-11] MEDS ORDERED: TRETINOIN PO SCH (15:30)
--- NOTE | 2019-10-11 16:08 | PRG ---
DATE OF SERVICE: 10/11/2019 SUBJECTIVE: Ms. Guajardo has still had some vomiting last night. She had an EGD today with Dr. Ramírez. This revealed esophagitis, duodenal ulcerations probably consistent with NSAIDs. She has been started on full liquids afterward and she has been advised to avoid NSAIDs. Plan is to observe her today to make sure she tolerates her diet and probably discharge home tomorrow to resume her home medications, PPIs, and to avoid NSAIDs. OBJECTIVE: ABDOMEN: Soft. LUNGS: Clear to auscultation. CARDIAC: Regular rate and rhythm without murmur or gallop. Job ID: [id number]
[2019-10-11] MEDS: Potassium Chloride 10 MEQ TAB PO SCH (17:15)
[2019-10-11] MEDS: Lacosamide 50 mg Tablet PO SCH (20:29)
[2019-10-11] MEDS: Gabapentin 300 MG CAP PO SCH (20:29)
[2019-10-11] MEDS: Magnesium Oxide 250 MG TAB PO SCH (20:29)
[2019-10-11] MEDS: Enoxaparin Sodium 40 MG/0.4 ML SYRINGE SC SCH (20:29)
[2019-10-12] MEDS: Lactated Ringer's 1,000 ML IV SCH ×2 (00:06→07:18)
[2019-10-12] MEDS ORDERED: Calcium Carbonate 500 MG TAB PO SCH (09:00)
[2019-10-12] MEDS ORDERED: valACYclovir 500 MG TAB PO SCH (09:00)
[2019-10-12] MEDS ORDERED: Anastrozole 1 MG TAB PO SCH (09:00)
[2019-10-12] MEDS ORDERED: Furosemide 40 MG TAB PO SCH (09:00)
[2019-10-12] MEDS ORDERED: NIFEdipine XL 30 MG TAB PO SCH (09:00)
[2019-10-12] MEDS: Magnesium Oxide 250 MG TAB PO SCH (09:29)
[2019-10-12] MEDS: Metoprolol Tartrate 25 MG TAB PO SCH (09:31)
[2019-10-12] MEDS: Ondansetron PF 4 MG/2 ML Vial IVP SCH (09:31)
[2019-10-12] MEDS: Potassium Chloride 10 MEQ TAB PO SCH (09:31)
[2019-10-12] MEDS: Gabapentin 300 MG CAP PO SCH (09:33)
[2019-10-12] MEDS: Lacosamide 50 mg Tablet PO SCH (09:34)
--- NOTE | 2019-10-12 10:30 | DIS ---
DATE OF ADMISSION: 10/09/2019 DATE OF DISCHARGE: 10/12/2019 DISCHARGE DIAGNOSES: 1. Morbid obesity, BMI 34, height 5 feet 5 inches, weight 208 pounds. 2. Gastritis. 3. Duodenitis. 4. Gastroesophageal reflux with esophagitis. PROCEDURES IN THIS HOSPITALIZATIONS: CT scan of the abdomen and pelvis revealing postoperative changes from incisional hernia repair, robotic mesh performed in the last few weeks. Dr. Ramírez, GI, EGD revealing above findings. DISCHARGE MEDICATIONS: Resume home medications. 1. Acyclovir. 2. Ventolin inhaler. 3. Tretinoin. 4. Protonix. 5. Nitrostat. 6. Nifedipine. 7. Metoprolol. 8. Magnesium. 9. Vimpat. 10. Gabapentin. 11. Furosemide. 12. Cyclobenzaprine. 13. . 14. Calcium. HISTORY: A 59-year-old female, who has been followed by me with multiple operations, recently underwent on 09/22/2019, robot mesh reinforcement of fascial approximation, incisional hernia, recurrent umbilical area, previous hernia repair, robotic mesh, subxiphoid area, 09/22/2019 last operation. The patient took Flexeril, NSAID, and pain medication. She early in the morning that night began experiencing nausea and vomiting, intractable. She presented to the emergency room. CAT scan obtained, revealed postoperative changes from operations as described above. Due to her dehydration and intractable nausea and vomiting, she is admitted for hydration overnight, this persisted, thus Gastroenterology was consulted and Dr. Ramírez saw her and endoscopy performed with above findings. Post endoscopy, she tolerated diet. She is instructed to avoid NSAIDs, take PPI daily, and follow up with Dr. Ramírez in 4 to 6 weeks, follow up with Dr. Diehl per appointment. Job ID: [id number]
[2019-10-12 13:05] VITALS: BP 108/71; TEMP 98.2
--- NOTE | 2019-10-13 09:29 | PQF ---
MICHELLE MILLS RICHARD D MD [id number] [place] [id number] CLINICAL DOCUMENTATION CLARIFICATION FORM: POST DISCHARGE Addendum to original discharge summary date: ____ Late entry note date: __ DATE: ATTN:SACHIN BARR MD Please exercise your independent, professional judgment in responding to the clarification form. Clinical indicators are provided on the bottom of this form for your review Please check appropriate box(s): [ ] Nausea/vomiting due to GERD with esophagitis [ ] Nausea/vomiting due to Duodenal ulcer [ ] Nausea/vomiting due to unspecified cause [ yes] Other diagnosis __N/V due to NSAID use that caused duodenal ulcerations & the N/V caused esophagitis & gastritis [ ] Unable to determine For continuity of documentation, please document condition throughout progress notes and discharge summary. Thank You. CLINICAL INDICATORS - SIGNS / SYMPTOMS / LABS - This revealed esophagitis, duodenal ulcerations probably consistent with NSAIDs- Progress note, 10/11, SACHIN BARR MD - GERD with esophagitis-DS, 10/12, SACHIN BARR MD - Gastritis, Duodenitis-DS, 10/12, SACHIN BARR MD - Due to dehydration and intractable nausea and vomiting--DS, 10/12, SACHIN BARR MD - Superficial duodenal ulcerations within the duodenal blub and erosive changes in the second portion of the duodenum consistent with either Helicobacter infection versus NSAID use( most likely due to her increased nausea and vomiting )- EGD, 10/11, Darrell Banda MD - [place] grade C reflux medicated erosive esophagitis extending 14cm from the gastroesophageal junction( most likely duo to her increased nausea and vomiting- EGD, 10/11, Darrell Banda MD - the most likely reason for the nausea and vomiting would be the duodenal ulcerations with likely source being NSAID abuse at home-EGD, 10/11, Darrell Banda MD RISK FACTORS - NSAIDs--DS, 10/12, SACHIN BARR MD TREATMENT: -EGD, 10/11, Darrell Banda MD -Ondansetron.IV- OCT, 10/09 - Protonix.IV- OCT, 10/09 [employer](This form is maintained as a part of the permanent medical record) 2014 [employer]. All Rights Reserved Abiodun [email or web address]
== END 2019-10-12 14:00 | disposition home or self-care (01) | DRG 384 ==
LOC: ERS 16:06 → SURG A 18:18
PROVIDERS: ADMIT Specialist; ATTEND Specialist
PROC: 0DB98ZX Excision of Duodenum, Via Natural or Artificial Opening Endoscopic, Diagnostic (ICD-10-PCS; principal; 2019-10-11)
DX: K26.9 Duodenal ulcer, unspecified as acute or chronic, without hemorrhage or perforation (principal); K22.10 Ulcer of esophagus without bleeding; K29.80 Duodenitis without bleeding; K21.0 Gastro-esophageal reflux disease with esophagitis; K29.70 Gastritis, unspecified, without bleeding; E66.01 Morbid (severe) obesity due to excess calories; E86.0 Dehydration; I25.10 Atherosclerotic heart disease of native coronary artery without angina pectoris; I10 Essential (primary) hypertension; R13.10 Dysphagia, unspecified; C50.912 Malignant neoplasm of unspecified site of left female breast; Z68.34 Body mass index [BMI] 34.0-34.9, adult; Z95.1 Presence of aortocoronary bypass graft; Z90.13 Acquired absence of bilateral breasts and nipples; Z79.1 Long term (current) use of non-steroidal anti-inflammatories (NSAID)
CPT/HCPCS: 36415; 71045; 74177; 80053; 81003; 81015; 82553; 83605; 83690; 83735; 84484; 85025; 88305; 88312; 93005; 93010; 96361; 96374; 96376; C9113; J1650; J2405; J2550; J2704; J3475; J3490; Q9967

== ENCOUNTER 2020-12-23 14:29 | Outpatient (CLI) | payer MEDICARE, OTHER | END 2020-12-23 14:30 | disposition home or self-care (01) | LOC: BICRAD 14:29 | PROVIDERS: ATTEND Internal Medicine Pulmonary Disease | DX: R06.00 Dyspnea, unspecified (principal) | CPT/HCPCS: 71046 ==

== ENCOUNTER 2021-02-13 09:28 | Outpatient (CLI) | payer MEDICARE, OTHER | END 2021-02-13 09:29 | disposition home or self-care (01) | LOC: BICMAMMO 09:28 | PROVIDERS: ATTEND Internal Medicine Medical Oncology | DX: Z13.820 Encounter for screening for osteoporosis (principal); N95.9 Unspecified menopausal and perimenopausal disorder; T38.6X5A Adverse effect of antigonadotrophins, antiestrogens, antiandrogens, not elsewhere classified, initial encounter | CPT/HCPCS: 77080 ==

== ENCOUNTER 2021-04-03 | Outpatient (CLI) | payer MEDICARE, OTHER | END 2021-04-03 13:02 | disposition home or self-care (01) ==

== ENCOUNTER 2022-02-27 17:37 | Inpatient (IN) | payer MEDICARE, OTHER ==
[2022-02-27] MEDS ORDERED: Vancomycin 1 GM/200 ML BAG ONE (17:52)
[2022-02-27] MEDS ORDERED: Piperacillin/Tazobactam 3.375 GM VIAL ONE (17:52)
[2022-02-27 18:13] LABS: #Lymphocytes 1.7 thou/uL (1.20-3.40); #Monocytes 0.8 thou/uL (0.11-0.59); #Neutrophils 11.7 thou/uL (1.40-6.50); %Basophils 0.3 % (0.0-1.0); %Eosinophils 0.2 % (0.0-10.0); %Lymphocytes 12.2 % (21.0-51.0); %Monocytes 5.7 % (0.0-10.0); %Neutrophils 81.6 % (42.0-75.0); Hemoglobin 12.8 g/dL (12.0-16.0); Mean Corpuscular HGB CONC 34.3 g/dL (32.0-36.0); Mean Corpuscular Hemoglobin 31.3 pg (27.0-31.0); Mean Corpuscular Volume 91.1 fL (78.0-98.0); Mean Platelet Volume 7.5 fL (7.4-10.4); Platelet Count 185 thou/uL (130-400); RBC Distribution Width 12.9 % (11.5-14.5); Red Blood Cell (RBC) Count 4.11 mill/uL (4.20-5.40); White Blood Cell (WBC) Count 14.3 thou/uL (4.8-10.8)
[2022-02-27 18:27] LABS: Bilirubin Negative (Negative); Blood, Urine Negative (Negative); Clarity Clear (Clear); Glucose, Urine (Dipstick) Normal (Negative); Ketone, Urine Negative (Negative); Leukocyte Negative Leu/uL (Negative); Nitrite Negative (Negative); Protein, Urine (Dipstick) Negative (Neg-Trace); Specific Gravity, Urine 1.011 (1.002-1.036); Urobilinogen Normal mg/dL (Less than 2)
[2022-02-27 18:35] LABS: ALT (SGPT) Less than 7 U/L (8-55); AST (SGOT) 12 U/L (5-34); Albumin 3.7 g/dL (3.4-4.8); Alkaline Phosphatase 82 U/L (40-110); Anion Gap 16 mmol/L (10-20); BUN (Urea Nitrogen) 6 mg/dL (9.8-20.1); Calc. Creatinine Clearance 0 mL/min (70-130); Calcium 8.2 mg/dL (7.8-10.44); Carbon Dioxide 22 mmol/L (23-31); Chloride 102 mmol/L (98-107); Estimated GFR 85; Globulin 3.6 g/dL (2.4-3.5); Glucose 130 mg/dL (80-115); Potassium 3.1 mmol/L (3.5-5.1); Protein, Total 7.3 g/dL (5.8-8.1); Sodium 137 mmol/L (136-145)
[2022-02-27 19:03] LABS: SARS-CoV-2 NAA Rapid Test Not Detected (NotDetected)
[2022-02-27] MEDS ORDERED: Furosemide 40 MG/4 ML VIAL ONE (19:30)
[2022-02-27] MEDS ORDERED: Potassium Chloride 20 MEQ TAB PO SCH (20:45)
[2022-02-27 21:42] VITALS: BMI 36.3
[2022-02-27] MEDS ORDERED: Ondansetron PF 4 MG/2 ML Vial IVP PRN (21:48)
[2022-02-28] MEDS: Cefepime 1 GM in Sodium Chloride 0.9% 100 ML IVPB SCH ×2 (02:00→13:21)
[2022-02-28] MEDS: Vancomycin 1.5 GRAM/300 ML BAG 1.5 GM in Premix Bag 1 BAG IVPB SCH ×2 (02:00→13:21)
[2022-02-28] MEDS: Acetaminophen 325 MG TAB PO PRN ×3 (03:04→20:45)
[2022-02-28 06:37] LABS: #Basophils 0.1 thou/uL (0.0-0.2); #Lymphocytes 2.1 thou/uL (1.20-3.40); #Monocytes 1.5 thou/uL (0.11-0.59); #Neutrophils 12.2 thou/uL (1.40-6.50); %Basophils 0.4 % (0.0-1.0); %Eosinophils 0.2 % (0.0-10.0); %Monocytes 9.5 % (0.0-10.0); Hemoglobin 12.2 g/dL (12.0-16.0); Mean Corpuscular HGB CONC 34.1 g/dL (32.0-36.0); Mean Corpuscular Hemoglobin 30.9 pg (27.0-31.0); Mean Corpuscular Volume 90.7 fL (78.0-98.0); Mean Platelet Volume 7.4 fL (7.4-10.4); Platelet Count 175 thou/uL (130-400); RBC Distribution Width 13.1 % (11.5-14.5); Red Blood Cell (RBC) Count 3.95 mill/uL (4.20-5.40); White Blood Cell (WBC) Count 15.8 thou/uL (4.8-10.8)
[2022-02-28 07:01] LABS: Anion Gap 14 mmol/L (10-20); BUN (Urea Nitrogen) 5 mg/dL (9.8-20.1); Calc. Creatinine Clearance 113 mL/min (70-130); Calcium 8.3 mg/dL (7.8-10.44); Carbon Dioxide 25 mmol/L (23-31); Chloride 105 mmol/L (98-107); Estimated GFR 87; Glucose 109 mg/dL (80-115); Potassium 3.3 mmol/L (3.5-5.1); Sodium 141 mmol/L (136-145)
[2022-02-28 07:08] LABS: Magnesium 0.9 mg/dL (1.6-2.6)
[2022-02-28] MEDS ORDERED: Electrolyte Replacement Protocol FS PRN (07:45)
[2022-02-28] MEDS ORDERED: Magnesium Sulfate In Water 4 GM in Premix Bag 1 BAG IVPB SCH (08:00)
[2022-02-28] MEDS ORDERED: Potassium Chloride 20 MEQ TAB PO SCH ×2 (08:00→17:00)
[2022-02-28] MEDS ORDERED: Enoxaparin Sodium 40 MG/0.4 ML SYRINGE SC SCH (09:00)
[2022-02-28 09:23] LABS: Phosphorus 2.7 mg/dL (2.3-4.7)
[2022-02-28] MEDS ORDERED: Albuterol Sulfate 2.5 mg/3 ml Neb NEB PRN (12:28)
[2022-02-28] MEDS ORDERED: Anastrozole 1 MG TAB PO SCH (12:30)
[2022-02-28 14:40] LABS: Potassium 3.5 mmol/L (3.5-5.1)
[2022-02-28 14:45] LABS: Troponin I Less than 0.010 ng/mL (< 0.028)
[2022-02-28] MEDS: Potassium Chloride 10 MEQ TAB PO SCH (17:52)
[2022-02-28] MEDS: Doxycycline 100 MG CAP PO SCH (20:31)
[2022-02-28] MEDS: Ascorbic Acid 500 mg Chewable Tablet PO SCH (20:31)
[2022-02-28] MEDS: Metoprolol Tartrate 25 MG TAB PO SCH (20:32)
[2022-02-28] MEDS: cefTRIAXone\\ROCEPHIN 2 GM in Sodium Chloride 0.9% 100 ML IVPB SCH (20:47)
[2022-02-28] MEDS ORDERED: Magnesium 2 GM/50 ML(in water) 2 GM in Premix Bag 1 BAG IVPB SCH (23:00)
[2022-03-01 07:01] LABS: #Eosinphils 0.3 thou/uL (0.0-0.7); #Lymphocytes 2.1 thou/uL (1.20-3.40); #Monocytes 1.1 thou/uL (0.11-0.59); #Neutrophils 9.3 thou/uL (1.40-6.50); %Basophils 0.4 % (0.0-1.0); %Lymphocytes 16.4 % (21.0-51.0); %Monocytes 8.7 % (0.0-10.0); %Neutrophils 72.6 % (42.0-75.0); Hemoglobin 12.8 g/dL (12.0-16.0); Mean Corpuscular HGB CONC 33.1 g/dL (32.0-36.0); Mean Corpuscular Hemoglobin 30.5 pg (27.0-31.0); Mean Corpuscular Volume 92.2 fL (78.0-98.0); Mean Platelet Volume 7.4 fL (7.4-10.4); Platelet Count 186 thou/uL (130-400); RBC Distribution Width 13.2 % (11.5-14.5); White Blood Cell (WBC) Count 12.8 thou/uL (4.8-10.8)
[2022-03-01 07:26] LABS: Anion Gap 15 mmol/L (10-20); BUN (Urea Nitrogen) 5 mg/dL (9.8-20.1); Calc. Creatinine Clearance 117 mL/min (70-130); Calcium 9.3 mg/dL (7.8-10.44); Carbon Dioxide 26 mmol/L (23-31); Chloride 105 mmol/L (98-107); Estimated GFR 90; Glucose 95 mg/dL (80-115); Magnesium 2.1 mg/dL (1.6-2.6); Potassium 4.5 mmol/L (3.5-5.1); Sodium 141 mmol/L (136-145)
[2022-03-01] MEDS: Potassium Chloride 10 MEQ TAB PO SCH ×2 (08:20→17:23)
[2022-03-01] MEDS: Doxycycline 100 MG CAP PO SCH ×2 (08:20→21:01)
[2022-03-01] MEDS: valACYclovir 500 MG TAB PO SCH (08:21)
[2022-03-01] MEDS: Anastrozole 1 MG TAB PO SCH (08:21)
[2022-03-01] MEDS: Saccharomyces boulardii 250 MG CAP PO SCH (08:21)
[2022-03-01] MEDS: NIFEdipine XL 30 MG TAB PO SCH (08:21)
[2022-03-01] MEDS ORDERED: Fluticasone Propionate Nasal Spray 16 gm Bottle NASAL SCH (09:00)
[2022-03-01] MEDS: Metoprolol Tartrate 25 MG TAB PO SCH ×2 (12:19→21:01)
[2022-03-01] MEDS: Fluticasone Propionate Nasal Spray 16 gm Bottle NASAL SCH (12:19)
[2022-03-01 12:41] LABS: Troponin I Less than 0.010 ng/mL (< 0.028)
[2022-03-01 15:09] LABS: Troponin I Less than 0.010 ng/mL (< 0.028)
[2022-03-01 20:19] LABS: Troponin I Less than 0.010 ng/mL (< 0.028)
[2022-03-01] MEDS: cefTRIAXone\\ROCEPHIN 2 GM in Sodium Chloride 0.9% 100 ML IVPB SCH (21:01)
[2022-03-01] MEDS: Ascorbic Acid 500 mg Chewable Tablet PO SCH (21:01)
[2022-03-02 05:59] VITALS: TEMP 98.3
[2022-03-02 06:42] LABS: #Basophils 0.1 thou/uL (0.0-0.2); #Eosinphils 0.4 thou/uL (0.0-0.7); #Lymphocytes 2.2 thou/uL (1.20-3.40); #Monocytes 0.9 thou/uL (0.11-0.59); #Neutrophils 4.2 thou/uL (1.40-6.50); %Basophils 0.9 % (0.0-1.0); %Eosinophils 4.9 % (0.0-10.0); %Lymphocytes 28.9 % (21.0-51.0); %Neutrophils 54.2 % (42.0-75.0); Hemoglobin 12.9 g/dL (12.0-16.0); Mean Corpuscular HGB CONC 32.8 g/dL (32.0-36.0); Mean Corpuscular Hemoglobin 30.3 pg (27.0-31.0); Mean Corpuscular Volume 92.3 fL (78.0-98.0); Mean Platelet Volume 7.7 fL (7.4-10.4); Platelet Count 200 thou/uL (130-400); Red Blood Cell (RBC) Count 4.27 mill/uL (4.20-5.40); White Blood Cell (WBC) Count 7.7 thou/uL (4.8-10.8)
[2022-03-02 07:01] LABS: Anion Gap 15 mmol/L (10-20); BUN (Urea Nitrogen) 6 mg/dL (9.8-20.1); Calc. Creatinine Clearance 112 mL/min (70-130); Calcium 9.4 mg/dL (7.8-10.44); Carbon Dioxide 25 mmol/L (23-31); Chloride 106 mmol/L (98-107); Estimated GFR 86; Glucose 99 mg/dL (80-115); Potassium 4.5 mmol/L (3.5-5.1); Sodium 141 mmol/L (136-145)
[2022-03-02 08:34] VITALS: BP 135/82
[2022-03-02] MEDS ORDERED: Cefdinir 300 MG CAP PO SCH (09:00)
[2022-03-02] MEDS: Saccharomyces boulardii 250 MG CAP PO SCH (09:35)
[2022-03-02] MEDS: Anastrozole 1 MG TAB PO SCH (09:35)
[2022-03-02] MEDS: Doxycycline 100 MG CAP PO SCH (09:35)
[2022-03-02] MEDS: Metoprolol Tartrate 25 MG TAB PO SCH (09:35)
[2022-03-02] MEDS: Fluticasone Propionate Nasal Spray 16 gm Bottle NASAL SCH (09:35)
[2022-03-02] MEDS: NIFEdipine XL 30 MG TAB PO SCH (09:35)
[2022-03-02] MEDS: valACYclovir 500 MG TAB PO SCH (09:48)
[2022-03-02] MEDS: Potassium Chloride 10 MEQ TAB PO SCH (10:07)
== END 2022-03-02 11:34 | disposition home or self-care (01) | DRG 871 ==
LOC: ERS 17:37 → T4-A 19:34
PROVIDERS: ADMIT Internal Medicine; ATTEND Internal Medicine
DX: A41.50 Gram-negative sepsis, unspecified (principal); Z20.822 Contact with and (suspected) exposure to COVID-19; J15.6 Pneumonia due to other Gram-negative bacteria; I50.32 Chronic diastolic (congestive) heart failure; I13.0 Hypertensive heart and chronic kidney disease with heart failure and stage 1 through stage 4 chronic kidney disease, or unspecified chronic kidney disease; I25.10 Atherosclerotic heart disease of native coronary artery without angina pectoris; I10 Essential (primary) hypertension; K21.9 Gastro-esophageal reflux disease without esophagitis; E83.42 Hypomagnesemia; E87.6 Hypokalemia; N18.2 Chronic kidney disease, stage 2 (mild); I08.1 Rheumatic disorders of both mitral and tricuspid valves; E66.9 Obesity, unspecified; R07.89 Other chest pain; Z68.36 Body mass index [BMI] 36.0-36.9, adult; Z85.6 Personal history of leukemia; Z85.3 Personal history of malignant neoplasm of breast; Z92.21 Personal history of antineoplastic chemotherapy; Z90.13 Acquired absence of bilateral breasts and nipples; Z79.899 Other long term (current) drug therapy; Z79.51 Long term (current) use of inhaled steroids; Z79.811 Long term (current) use of aromatase inhibitors; Z79.84 Long term (current) use of oral hypoglycemic drugs; Z95.1 Presence of aortocoronary bypass graft; Z95.5 Presence of coronary angioplasty implant and graft; Z90.49 Acquired absence of other specified parts of digestive tract; Z90.710 Acquired absence of both cervix and uterus; Z98.890 Other specified postprocedural states; Z83.3 Family history of diabetes mellitus; Z80.3 Family history of malignant neoplasm of breast; Z87.891 Personal history of nicotine dependence
CPT/HCPCS: 36415; 36416; 71045; 80048; 80053; 81003; 83605; 83735; 83880; 84100; 84484; 85025; 87040; 87070; 87086; 87205; 93005; 93010; 96365; 96367; J0692; J0696; J1650; J1940; J2405; J2543; J3370; J3475; J3490

== ENCOUNTER 2022-03-25 18:05 | Inpatient (IN) | payer MEDICARE, OTHER ==
[~2022-03-25 18:05] MED LIST changes: +Iopamidol 370 76% 100 ML VIAL ONE; -Iopamidol-370 76% 500 ML 1 ML ONE
[2022-03-25 18:58] LABS: #Basophils 0.1 thou/uL (0.0-0.2); #Eosinphils 0.3 thou/uL (0.0-0.7); #Lymphocytes 2.8 thou/uL (1.20-3.40); #Monocytes 0.7 thou/uL (0.11-0.59); %Basophils 0.7 % (0.0-1.0); %Eosinophils 3.3 % (0.0-10.0); %Lymphocytes 36.1 % (21.0-51.0); %Monocytes 8.9 % (0.0-10.0); Hemoglobin 12.7 g/dL (12.0-16.0); Mean Corpuscular HGB CONC 34.6 g/dL (32.0-36.0); Mean Corpuscular Volume 89.7 fL (78.0-98.0); Mean Platelet Volume 7.3 fL (7.4-10.4); Platelet Count 195 thou/uL (130-400); RBC Distribution Width 13.1 % (11.5-14.5); White Blood Cell (WBC) Count 7.8 thou/uL (4.8-10.8)
[2022-03-25 19:16] LABS: INR-International Normal Ratio 1.1; Prothrombin Time 14.2 sec (12.0-14.7)
[2022-03-25 19:17] LABS: PTT 36.8 sec (22.9-36.1)
[2022-03-25 19:19] LABS: ALT (SGPT) 7 U/L (8-55); AST (SGOT) 14 U/L (5-34); Albumin 4.1 g/dL (3.4-4.8); Alkaline Phosphatase 102 U/L (40-110); Anion Gap 16 mmol/L (10-20); BUN (Urea Nitrogen) 10 mg/dL (9.8-20.1); Bilirubin, Total 0.6 mg/dL (0.2-1.2); Calc. Creatinine Clearance 0 mL/min (70-130); Calcium 8.5 mg/dL (7.8-10.44); Carbon Dioxide 24 mmol/L (23-31); Chloride 102 mmol/L (98-107); Estimated GFR 64; Globulin 3.3 g/dL (2.4-3.5); Glucose 116 mg/dL (80-115); Potassium 3.3 mmol/L (3.5-5.1); Protein, Total 7.4 g/dL (5.8-8.1); Sodium 139 mmol/L (136-145)
[2022-03-25 19:37] LABS: SARS-CoV-2 NAA Rapid Test Not Detected (NotDetected)
[2022-03-25] MEDS ORDERED: Acetaminophen 500 MG TAB ONE ×2 (19:44→19:47)
[2022-03-25] MEDS ORDERED: HYDROcodone/Acetaminophen 5/325 mg Tablet ONE (21:33)
[2022-03-25] MEDS ORDERED: Communication Order-Pharmacy FS SCH (22:04)
[2022-03-25] MEDS ORDERED: hydrALAZINE 20 MG/ML VIAL SLOW IVP PRN (22:04)
[2022-03-25] MEDS ORDERED: Labetalol HCl 100 MG/20 ML VIAL SLOW IVP PRN (22:04)
[2022-03-25] MEDS ORDERED: niCARdipine 25 MG in Sodium Chloride 0.9% 250 ML 250 ML IVPB PRN (22:04)
[2022-03-25 22:52] VITALS: BMI 33.7
[2022-03-26] MEDS ORDERED: HYDROcodone/Acetaminophen 5/325 mg Tablet PO SCH (03:00)
[2022-03-26] MEDS ORDERED: Potassium Chloride 20 MEQ TAB PO SCH (05:00)
[2022-03-26] MEDS: Acetaminophen 325 MG TAB PO PRN (16:45)
[2022-03-26] MEDS ORDERED: Atorvastatin Calcium 40 MG TAB PO SCH (21:00)
[2022-03-27 09:16] LABS: #Eosinphils 0.2 thou/uL (0.0-0.7); #Monocytes 0.6 thou/uL (0.11-0.59); #Neutrophils 3.7 thou/uL (1.40-6.50); %Basophils 0.7 % (0.0-1.0); %Eosinophils 3.1 % (0.0-10.0); %Lymphocytes 30.8 % (21.0-51.0); %Monocytes 8.7 % (0.0-10.0); %Neutrophils 56.7 % (42.0-75.0); Mean Corpuscular HGB CONC 33.3 g/dL (32.0-36.0); Mean Corpuscular Hemoglobin 30.2 pg (27.0-31.0); Mean Corpuscular Volume 90.8 fL (78.0-98.0); Mean Platelet Volume 7.3 fL (7.4-10.4); Platelet Count 203 thou/uL (130-400); RBC Distribution Width 13.2 % (11.5-14.5); Red Blood Cell (RBC) Count 4.29 mill/uL (4.20-5.40); White Blood Cell (WBC) Count 6.4 thou/uL (4.8-10.8)
[2022-03-27 09:30] LABS: Hemoglobin A1c 5.8 % (4.0-6.0)
[2022-03-27 09:36] LABS: Anion Gap 16 mmol/L (10-20); BUN (Urea Nitrogen) 6 mg/dL (9.8-20.1); Calc. Creatinine Clearance 104 mL/min (70-130); Calcium 8.9 mg/dL (7.8-10.44); Carbon Dioxide 26 mmol/L (23-31); Cardiac Risk 5.4 (Less than 4.5); Chloride 103 mmol/L (98-107); Cholesterol 161 mg/dl (< 200 Desired); Estimated GFR 86; Glucose 119 mg/dL (80-115); HDL Cholesterol 30 mg/dL (>60 Neg Risk); LDL Cholesterol, Calculated 102 mg/dL; Potassium 3.5 mmol/L (3.5-5.1); Sodium 141 mmol/L (136-145); Triglycerides 146 mg/dL (Less than 150)
[2022-03-27] MEDS: Acetaminophen 325 MG TAB PO PRN (09:45)
[2022-03-27] MEDS ORDERED: tiZANidine HCl 4 MG TAB PO PRN (10:48)
[2022-03-27] MEDS ORDERED: Nitroglycerin 0.4 MG TAB (25 Tab Bottle) SL PRN (10:48)
[2022-03-27] MEDS ORDERED: Aspirin 81 mg Enteric Coated Tablet PO SCH (11:45)
[2022-03-27] MEDS ORDERED: Furosemide 40 MG TAB PO SCH (12:00)
[2022-03-27] MEDS ORDERED: Anastrozole 1 MG TAB PO SCH (12:00)
[2022-03-27] MEDS ORDERED: NIFEdipine XL 30 MG TAB PO SCH (12:00)
[2022-03-27] MEDS ORDERED: metFORMIN XR 500 MG TAB PO SCH (12:00)
[2022-03-27] MEDS ORDERED: Albuterol Sulfate 2.5 mg/3 ml Neb NEB SCH (13:00)
[2022-03-27] MEDS ORDERED: Magnesium Sulfate In Water 4 GM in Premix Bag 1 BAG IVPB SCH (13:45)
[2022-03-27 16:56] VITALS: BP 124/64; TEMP 97.3
[2022-03-27] MEDS ORDERED: Ferrous Sulfate 325 MG TAB PO SCH (17:00)
[2022-03-27] MEDS ORDERED: Cholecalciferol 1,000 UNITS (25 MCG) TAB PO SCH (21:00)
[2022-03-27] MEDS ORDERED: Magnesium Oxide 400 MG TAB PO SCH (21:00)
[2022-03-27] MEDS ORDERED: Potassium Chloride 10 MEQ TAB PO SCH (21:00)
[2022-03-27] MEDS ORDERED: Ascorbic Acid 500 mg Chewable Tablet PO SCH (21:00)
[2022-03-28] MEDS ORDERED: Fluticasone Propionate Nasal Spray 16 gm Bottle NASAL SCH (09:00)
[2022-03-28] MEDS ORDERED: Anastrozole 1 MG TAB PO SCH (09:00)
[2022-03-28] MEDS ORDERED: Furosemide 40 MG TAB PO SCH (09:00)
[2022-03-28] MEDS ORDERED: Saccharomyces boulardii 250 MG CAP PO SCH (09:00)
[2022-03-28] MEDS ORDERED: Aspirin 81 mg Enteric Coated Tablet PO SCH (09:00)
[2022-03-28] MEDS ORDERED: NIFEdipine XL 30 MG TAB PO SCH (09:00)
== END 2022-03-27 17:45 | disposition home health service (06) | DRG 62 ==
LOC: ERS 18:05 → CCU 20:40 → NEURO 03-26 21:54
PROVIDERS: ADMIT Internal Medicine; ATTEND Internal Medicine
DX: I63.9 Cerebral infarction, unspecified (principal); I69.354 Hemiplegia and hemiparesis following cerebral infarction affecting left non-dominant side; I25.810 Atherosclerosis of coronary artery bypass graft(s) without angina pectoris; I50.22 Chronic systolic (congestive) heart failure; D47.1 Chronic myeloproliferative disease; K21.9 Gastro-esophageal reflux disease without esophagitis; Z20.822 Contact with and (suspected) exposure to COVID-19; E87.6 Hypokalemia; J44.9 Chronic obstructive pulmonary disease, unspecified; E83.42 Hypomagnesemia; I11.0 Hypertensive heart disease with heart failure; Z88.8 Allergy status to other drugs, medicaments and biological substances; Z79.84 Long term (current) use of oral hypoglycemic drugs; Z79.899 Other long term (current) drug therapy; Z95.5 Presence of coronary angioplasty implant and graft; Z95.1 Presence of aortocoronary bypass graft; Z90.49 Acquired absence of other specified parts of digestive tract; Z90.710 Acquired absence of both cervix and uterus; Z87.891 Personal history of nicotine dependence
CPT/HCPCS: 36415; 36416; 70450; 70496; 70498; 70551; 80048; 80053; 80061; 83036; 83735; 84484; 85025; 85610; 85730; 93005; 93306; 94640; 96374; J3475; J7611; Q9967

== ENCOUNTER 2022-04-03 10:12 | Emergency (ER) | payer MEDICARE, OTHER | END 2022-04-03 11:16 | disposition home or self-care (01) | LOC: ERS 10:12 | DX: I95.9 Hypotension, unspecified (principal); E11.9 Type 2 diabetes mellitus without complications; I10 Essential (primary) hypertension; Z86.73 Personal history of transient ischemic attack (TIA), and cerebral infarction without residual deficits | CPT/HCPCS: 99284 ==

== ENCOUNTER 2023-05-27 15:40 | Emergency (ER) | payer MEDICARE, OTHER ==
[2023-05-27 16:18] LABS: #Basophils 0.1 thou/uL (0.0-0.2); #Eosinphils 0.3 thou/uL (0.0-0.7); #Monocytes 0.8 thou/uL (0.11-0.59); %Basophils 1.2 % (0.0-1.0); %Eosinophils 3.8 % (0.0-10.0); %Lymphocytes 29.9 % (21.0-51.0); %Monocytes 10.4 % (0.0-10.0); %Neutrophils 54.6 % (42.0-75.0); Hematocrit 38.7 % (36.0-47.0); Hemoglobin 13.6 g/dL (12.0-16.0); Mean Corpuscular HGB CONC 35.1 g/dL (32.0-36.0); Mean Corpuscular Hemoglobin 30.6 pg (27.0-31.0); Mean Platelet Volume 8.9 fL (7.4-10.4); Platelet Count 216 10x3/uL (130-400); RBC Distribution Width 12.9 % (11.5-14.5); Red Blood Cell (RBC) Count 4.45 mill/uL (4.20-5.40); White Blood Cell (WBC) Count 7.3 10x3/uL (4.8-10.8)
[2023-05-27 16:22] LABS: Bacteria/HPF None Seen HPF (None Seen); Bilirubin Negative (Negative); Blood, Urine Negative (Negative); CAUTI Indications for Culture Dysuria,urgency,freq; Clarity Clear (Clear); Glucose, Urine (Dipstick) Normal (Negative); Ketone, Urine Negative (Negative); Leukocyte Negative Leu/uL (Negative); Nitrite Negative (Negative); Protein, Urine (Dipstick) Negative (Neg-Trace); RBC/HPF 0-3 HPF (0-3); Specific Gravity, Urine 1.008 (1.002-1.036); Squamous Epithelial None Seen HPF (0-3); Urobilinogen Normal mg/dL (Less than 2); WBC/HPF 0-3 HPF (0-3)
[2023-05-27 16:26] LABS: Urine Culture Reflex No No
[2023-05-27 16:42] LABS: ALT (SGPT) 13 U/L (8-55); AST (SGOT) 16 U/L (5-34); Albumin 4.6 g/dL (3.4-4.8); Alkaline Phosphatase 126 U/L (40-110); Anion Gap 16 mmol/L (10-20); BUN (Urea Nitrogen) 12 mg/dL (9.8-20.1); Bilirubin, Total 0.3 mg/dL (0.2-1.2); Calc. Creatinine Clearance 0 mL/min (70-130); Carbon Dioxide 24 mmol/L (23-31); Chloride 104 mmol/L (98-107); Estimated GFR 61; Globulin 3.6 g/dL (2.4-3.5); Glucose 105 mg/dL (80-115); Lipase 36 U/L (8-78); Potassium 3.7 mmol/L (3.5-5.1); Protein, Total 8.2 g/dL (5.8-8.1); Sodium 140 mmol/L (136-145)
[2023-05-27 16:45] LABS: Troponin I Less than 0.010 ng/mL (< 0.028)
[2023-05-27 16:46] LABS: INR-International Normal Ratio 1.1; PTT 29.9 sec (22.9-36.1); Prothrombin Time 14.6 sec (12.0-14.7)
== END 2023-05-27 17:25 | disposition home or self-care (01) ==
LOC: ERS 15:40
DX: I95.9 Hypotension, unspecified (principal); R42 Dizziness and giddiness; I11.0 Hypertensive heart disease with heart failure; I50.9 Heart failure, unspecified; J44.9 Chronic obstructive pulmonary disease, unspecified; Z79.51 Long term (current) use of inhaled steroids; Z79.899 Other long term (current) drug therapy
CPT/HCPCS: 70450; 71045; 80053; 81001; 83690; 84484; 85025; 85610; 85730; 93005